=== PATIENT | male | born 1950 | race Two or more races ===

== ENCOUNTER 2016-07-24 12:20 | Inpatient (IN) | payer BC ==
[~2016-07-24] VITALS: Ht 170.2 cm; Wt 99.8 kg
[~2016-07-24 12:20] MED LIST: ATORVASTATIN CA20 MG ORAL; GEMFIBROZIL600 MG ORAL; GLUCOPHAGE850 MG ORAL; NAPROXEN500 M2 ORAL; NEURONTIN300 MG ORAL; TAMSULOSIN HCL0.4 MG ORAL
[2016-07-24 12:43] VITALS: BP 109/48
[2016-07-24] MEDS ORDERED: Nitroglycerin Subl 0.4mg tab (Bottle Of 25) SL PRN ×2 (12:45→21:45)
[2016-07-24 12:59] LABS: BASOPHILS % (AUTO) 0.9 % (0.0-2.0); EOSINOPHILS % (AUTO) 1.8 % (0.0-3.0); LYMPHOCYTES % (AUTO) 39.7 % (20.0-45.0); MEAN CORPUSCULAR HEMOGLOBIN 30.6 PG (27.0-31.0); MEAN CORPUSCULAR HGB CONC 34.5 G/DL (32.0-36.0); MEAN CORPUSCULAR VOLUME 89 FL (80-99); MEAN PLATELET VOLUME 8.7 FL (6.5-10.1); MONOCYTES % (AUTO) 6.6 % (1.0-10.0); NEUTROPHILS % (AUTO) 51.1 % (45.0-75.0); PLATELET COUNT 282 K/UL (150-450); RED BLOOD COUNT 2.82 M/UL (4.70-6.10); RED CELL DISTRIBUTION WIDTH 12.1 % (11.6-14.8); WHITE BLOOD COUNT 8.2 K/UL (4.8-10.8)
[2016-07-24] MEDS ORDERED: Morphine Sulfate 4mg/ml Inj IVP ONE (13:00)
[2016-07-24 13:07] LABS: ALANINE AMINOTRANSFERASE 25 U/L (3-41); ALBUMIN/GLOBULIN RATIO 1.5 (1.0-2.7); ANION GAP 17 (5-15); ASPARTATE AMINO TRANSFERASE 26 U/L (5-40); CALCIUM 8.9 mg/dL (8.6-10.2); CARBON DIOXIDE 23 mEQ/L (20-30); CHLORIDE 96 mEQ/L (98-107); CREATININE 0.6 mg/dL (0.7-1.2); GLOMERULAR FILTRATION RATE > 60 mL/min (>60); HEMOLYSIS 2; POTASSIUM 4.1 mEQ/L (3.4-4.9); SODIUM 136 mEQ/L (135-145); TOTAL PROTEIN 6.7 g/dL (6.6-8.7); TROPONIN I < 0.30 ng/mL (<=0.30)
[2016-07-24 13:18] LABS: CKMB 5.7 ng/mL (< 6.7)
--- NOTE | 2016-07-24 13:52 | Emergency Room Report ---
History of Present Illness General Chief Complaint: Chest Pain Source: Patient Present Illness HPI 66-year-old male presents ED complaining of chest pain. States chest pain started last night. Pain is pressure-like, left-sided, nonradiating, intermittent. Lasting for several seconds then resolving. No other aggravating or relieving factors. Denies fevers or chills. Denies shortness of breath. History of diabetes. No other aggravating relieving factors. Denies any other associated symptoms Allergies: Coded Allergies: PINEAPPLE (Verified Allergy, Unknown, 07/24/16) Patient History Past Medical History: DM Past Surgical History: none Pertinent Family History: none Social History: Denies: alcohol use, drug use, smoking Immunizations: UTD Reviewed Nursing Documentation: PMH: Agreed, PSxH: Agreed Nursing Documentation-PMH Hx Cardiac Problems: No Hx Diabetes: Yes Hx Cancer: No Hx Gastrointestinal Problems: No Hx Neurological Problems: No Review of Systems All Other Systems: negative except mentioned in HPI Physical Exam Vital Signs Date Time Temp Pulse Resp B/P Pulse Ox O2 Delivery O2 Flow Rate FiO2 07/24/16 12:26 97.7 85 20 136/52 100 Room Air Sp02 EP Interpretation: reviewed, normal General Appearance: no apparent distress, alert, GCS 15, non-toxic Head: normocephalic, atraumatic Eyes: bilateral eye PERRL, bilateral eye normal inspection ENT: hearing grossly normal, normal pharynx, no angioedema, normal voice Neck: full range of motion, supple/symm/no masses Respiratory: chest non-tender, lungs clear, normal breath sounds, speaking full sentences Cardiovascular #1: regular rate, rhythm, no edema Cardiovascular #2: 2+ carotid (R), 2+ carotid (L), 2+ radial (R), 2+ radial (L) , 2+ dorsalis pedis (R), 2+ dorsalis pedis (L) Gastrointestinal: normal bowel sounds, non tender, soft, non-distended, no guarding, no rebound Rectal: deferred Genitourinary: normal inspection, no CVA tenderness Musculoskeletal: back normal, gait/station normal, normal range of motion, non- tender Neurologic: alert, oriented x3, responsive, motor strength/tone normal, sensory intact, speech normal Psychiatric: judgement/insight normal, memory normal, mood/affect normal, no suicidal/homicidal ideation Reflexes: 3+ bicep (R), 3+ bicep (L), 3+ tricep (R), 3+ tricep (L), 3+ knee (R) , 3+ knee (L) Skin: normal color, no rash, warm/dry, well hydrated Lymphatic: no adenopathy Medical Decision Making Diagnostic Impression: Primary Impression: ACS (acute coronary syndrome) ER Course Hospital Course 66-year-old male presents ED complaining of left-sided chest pain Differential diagnoses include: TX/unstable angina, contusion, muscle strain, PTX, rib fracture Clinical course Patient placed on stretcher. on monitoring manager. After initial history and physical I ordered labs, EKG, chest x-ray, ASA, morphine labs reviewed- no leukocytosis, hb/hct stable, electrolytes ok, trop negative EKG - NSR no acute ischemic changes Chest x-ray- no acute process Case discussed with Dr. Dykes and he agreed to accept the patient to his service for further care and support I. I feel this is a highly complex case requiring extensive working including EKG/Rhythm strip, Xray/CT/US, Blood/urine lab work, repeat exams while in ED, and administration of strong opiates/narcotics for pain control, admission to hospital or close patient follow up. Diagnosis - ACS admitted to telemetry in serious condition Labs Test 07/24/16 12:35 White Blood Count 8.2 K/UL (4.8-10.8) Red Blood Count 2.82 M/UL (4.70-6.10) Hemoglobin 8.6 G/DL (14.2-18.0) Hematocrit 25.1 % (42.0-52.0) Mean Corpuscular Volume 89 FL (80-99) Mean Corpuscular Hemoglobin 30.6 PG (27.0-31.0) Mean Corpuscular Hemoglobin Concent 34.5 G/DL (32.0-36.0) Red Cell Distribution Width 12.1 % (11.6-14.8) Platelet Count 282 K/UL (150-450) Mean Platelet Volume 8.7 FL (6.5-10.1) Neutrophils (%) (Auto) 51.1 % (45.0-75.0) Lymphocytes (%) (Auto) 39.7 % (20.0-45.0) Monocytes (%) (Auto) 6.6 % (1.0-10.0) Eosinophils (%) (Auto) 1.8 % (0.0-3.0) Basophils (%) (Auto) 0.9 % (0.0-2.0) Sodium Level 136 mEQ/L (135-145) Potassium Level 4.1 mEQ/L (3.4-4.9) Chloride Level 96 mEQ/L (98-107) Carbon Dioxide Level 23 mEQ/L (20-30) Anion Gap 17 (5-15) Blood Urea Nitrogen 15 mg/dL (7-23) Creatinine 0.6 mg/dL (0.7-1.2) Estimat Glomerular Filtration Rate > 60 mL/min (>60) Glucose Level 101 mg/dL (74-106) Calcium Level 8.9 mg/dL (8.6-10.2) Total Bilirubin < 0.2 mg/dL (0.0-1.2) Aspartate Amino Transf (AST/SGOT) 26 U/L (5-40) Alanine Aminotransferase (ALT/SGPT) 25 U/L (3-41) Alkaline Phosphatase 36 U/L (40-129) Total Creatine Kinase 203 U/L (38-174) Creatine Kinase MB 5.7 ng/mL (< 6.7) Creatine Kinase MB Relative Index 2.8 Troponin I < 0.30 ng/mL (<=0.30) Pro-B-Type Natriuretic Peptide 36 pg/mL (0-125) Total Protein 6.7 g/dL (6.6-8.7) Albumin 4.1 g/dL (3.5-5.2) Globulin 2.6 g/dL Albumin/Globulin Ratio 1.5 (1.0-2.7) EKG Diagnostic Results Rate: normal Rhythm: NSR ST Segments: no acute changes ASA given to the pt in ED: No Rhythm Strip Diag. Results EP Interpretation: yes Rhythm: NSR, no PVC's, no ectopy Chest X-Ray Diagnostic Results EP Interpretation: Yes Findings: no consolidation, no effusion, no pneumothorax, no acute cardiopulmonary disease, other - pulmonary congestion Number of Views: 1 Last Vital Signs Date Time Temp Pulse Resp B/P Pulse Ox O2 Delivery O2 Flow Rate FiO2 07/24/16 12:43 98.4 80 22 109/48 94 Room Air Status: improved Disposition: ADMITTED INPATIENT Condition: Serious Referrals: NOT CHOSEN IPA/,REFERRING (PCP) OLGA GUSMAN M.D. Jul 24, 2016 13:52
[2016-07-24 14:50] VITALS: BP 110/50
[2016-07-24 17:00] VITALS: BP 126/56
[2016-07-24 18:00] VITALS: BP 121/61
--- NOTE | 2016-07-24 18:28 | Diagnostic Imaging Report ---
Indication: Chest pain Technique: One view of the chest Comparison: none Findings: Inspiration is suboptimal. There is generalized mild interstitial prominence and central bronchial wall thickening. Pleural spaces are clear. Impression: Mild diffuse interstitial disease, acuity indeterminate. Correlate with clinical findings
[2016-07-24] MEDS ORDERED: Miralax 17gm pkt ORAL PRN (21:45)
[2016-07-24] MEDS ORDERED: Diltiazem 25mg/5ml IV PRN (21:45)
[2016-07-24] MEDS ORDERED: Morphine Sulfate 2mg/ml Inj IVP PRN (21:45)
[2016-07-24] MEDS ORDERED: Ketorolac 30mg Inj IV PRN (21:45)
[2016-07-24] MEDS ORDERED: DuoNeb 0.5-3(2.5)mg/3ml neb HHN PRN (21:45)
[2016-07-24] MEDS ORDERED: Enalaprilat 2.5mg/2ml Inj IV PRN (21:45)
[2016-07-24] MEDS: Heparin 5000 units/ml inj SUBQ SCH (22:37)
[2016-07-24] MEDS ORDERED: LOSARTAN POTASS25 M1 PO (22:56)
[2016-07-24] MEDS ORDERED: GLIPIZIDE10 MG PO (22:56)
[2016-07-25 00:30] VITALS: BP 147/68
[2016-07-25 04:00] VITALS: BP 140/72
[2016-07-25] MEDS: Heparin 5000 units/ml inj SUBQ SCH ×3 (06:00→19:54)
[2016-07-25] MEDS: NovoLOG Insulin Flexpen SUBQ SCH ×4 (07:10→20:09)
[2016-07-25 08:11] VITALS: BP 135/58
[2016-07-25 08:19] LABS: EOSINOPHILS % (AUTO) 1.9 % (0.0-3.0); LYMPHOCYTES % (AUTO) 43.2 % (20.0-45.0); MEAN CORPUSCULAR HEMOGLOBIN 30.1 PG (27.0-31.0); MEAN CORPUSCULAR HGB CONC 33.8 G/DL (32.0-36.0); MEAN CORPUSCULAR VOLUME 89 FL (80-99); MEAN PLATELET VOLUME 8.2 FL (6.5-10.1); MONOCYTES % (AUTO) 5.6 % (1.0-10.0); NEUTROPHILS % (AUTO) 48.2 % (45.0-75.0); PLATELET COUNT 257 K/UL (150-450); RED CELL DISTRIBUTION WIDTH 12.1 % (11.6-14.8); WHITE BLOOD COUNT 6.1 K/UL (4.8-10.8)
[2016-07-25 08:31] LABS: PROTHROMBIN TIME 9.8 SEC (9.30-11.50)
[2016-07-25 08:46] LABS: TROPONIN I < 0.30 ng/mL (<=0.30)
[2016-07-25 08:57] LABS: CHOLESTEROL 132 mg/dL (< 200); CHOLESTEROL/HDL RATIO 4.3 (3.3-4.4); CRP QUANT < 0.3 mg/dL (< 0.5); HEMOLYSIS 2; LDL CHOLESTEROL (CALC.) 67 mg/dL (60-99)
[2016-07-25] MEDS: Aspirin Baby 81mg ORAL SCH (09:00)
--- NOTE | 2016-07-25 09:24 | Cardiology Progress Note ---
Assessment/Plan Assessment/Plan abd and ches discomfort black hard stool anemia obesity dm htn no myonecrosis desptie 48 hour of pain likely gi in origin ekg neg trop neg will have echo he need gi valiente stool ob hol asa for now that trop neg dc naprosyn proton pump inhibitor Objective Last 24 Hour Vital Signs Date Time Temp Pulse Resp B/P Pulse Ox O2 Delivery O2 Flow Rate FiO2 07/25/16 08:11 97.5 70 20 135/58 100 Room Air 07/25/16 05:02 69 07/25/16 04:00 98.0 59 20 140/72 95 Room Air 07/25/16 00:30 97.9 65 20 147/68 94 Room Air 07/24/16 23:22 72 18 Room Air 21 07/24/16 20:00 63 07/24/16 18:45 98.0 69 17 121/61 99 Room Air 07/24/16 18:00 69 17 121/61 99 Room Air 07/24/16 17:00 98.0 68 18 126/56 97 Room Air 07/24/16 14:50 98.0 69 15 110/50 99 Room Air 07/24/16 12:43 98.4 80 22 109/48 94 Room Air 07/24/16 12:41 79 20 Room Air 07/24/16 12:26 97.7 85 20 136/52 100 Room Air Intake and Output 07/24/16 07/25/16 19:00 07:00 Intake Total 0 ml 200 ml Balance 0 ml 200 ml Intake Oral 0 ml 200 ml # Voids 2 Laboratory Tests Test 07/24/16 12:35 07/25/16 06:33 White Blood Count 8.2 K/UL (4.8-10.8) 6.1 K/UL (4.8-10.8) Red Blood Count 2.82 M/UL (4.70-6.10) L 2.90 M/UL (4.70-6.10) L Hemoglobin 8.6 G/DL (14.2-18.0) L 8.7 G/DL (14.2-18.0) L Hematocrit 25.1 % (42.0-52.0) L 25.8 % (42.0-52.0) L Mean Corpuscular Volume 89 FL (80-99) 89 FL (80-99) Mean Corpuscular Hemoglobin 30.6 PG (27.0-31.0) 30.1 PG (27.0-31.0) Mean Corpuscular Hemoglobin Concent 34.5 G/DL (32.0-36.0) 33.8 G/DL (32.0-36.0) Red Cell Distribution Width 12.1 % (11.6-14.8) 12.1 % (11.6-14.8) Platelet Count 282 K/UL (150-450) 257 K/UL (150-450) Mean Platelet Volume 8.7 FL (6.5-10.1) 8.2 FL (6.5-10.1) Neutrophils (%) (Auto) 51.1 % (45.0-75.0) 48.2 % (45.0-75.0) Lymphocytes (%) (Auto) 39.7 % (20.0-45.0) 43.2 % (20.0-45.0) Monocytes (%) (Auto) 6.6 % (1.0-10.0) 5.6 % (1.0-10.0) Eosinophils (%) (Auto) 1.8 % (0.0-3.0) 1.9 % (0.0-3.0) Basophils (%) (Auto) 0.9 % (0.0-2.0) 1.0 % (0.0-2.0) Sodium Level 136 mEQ/L (135-145) Potassium Level 4.1 mEQ/L (3.4-4.9) Chloride Level 96 mEQ/L (98-107) L Carbon Dioxide Level 23 mEQ/L (20-30) Anion Gap 17 (5-15) H Blood Urea Nitrogen 15 mg/dL (7-23) Creatinine 0.6 mg/dL (0.7-1.2) L Estimat Glomerular Filtration Rate > 60 mL/min (>60) Glucose Level 101 mg/dL (74-106) Calcium Level 8.9 mg/dL (8.6-10.2) Total Bilirubin < 0.2 mg/dL (0.0-1.2) Aspartate Amino Transf (AST/SGOT) 26 U/L (5-40) Alanine Aminotransferase (ALT/SGPT) 25 U/L (3-41) Alkaline Phosphatase 36 U/L (40-129) L Total Creatine Kinase 203 U/L (38-174) H Creatine Kinase MB 5.7 ng/mL (< 6.7) Creatine Kinase MB Relative Index 2.8 Troponin I < 0.30 ng/mL (<=0.30) < 0.30 ng/mL (<=0.30) Pro-B-Type Natriuretic Peptide 36 pg/mL (0-125) Total Protein 6.7 g/dL (6.6-8.7) Albumin 4.1 g/dL (3.5-5.2) Globulin 2.6 g/dL Albumin/Globulin Ratio 1.5 (1.0-2.7) Prothrombin Time 9.8 SEC (9.30-11.50) Prothromb Time International Ratio 1.0 (0.9-1.1) Activated Partial Thromboplast Time 22 SEC (23-33) L C-Reactive Protein, Quantitative < 0.3 mg/dL (< 0.5) Triglycerides Level 168 mg/dL (< 150) H Cholesterol Level 132 mg/dL (< 200) LDL Cholesterol 67 mg/dL (60-99) HDL Cholesterol 31 mg/dL (> 60) Cholesterol/HDL Ratio 4.3 (3.3-4.4) Thyroid Stimulating Hormone (TSH) 3.630 uIU/mL (0.300-4.500) BRITTNEY YANG 7, 2017 09:24
[2016-07-25 11:47] VITALS: BP 134/67
--- NOTE | 2016-07-25 14:08 | Cardiology Report ---
APPROVED REPORT EXAM: Two-dimensional and M-mode echocardiogram with Doppler and color Doppler. INDICATION LV function M-Mode DIMENSIONS IVSd1.6 (0.7-1.1cm)Left Atrium (MM)4.6 (1.6-4.0cm) LVDd5.2 (3.5-5.6cm)Aortic Root3.2 (2.0-3.7cm) PWd1.7 (0.7-1.1cm)Aortic Cusp Exc.1.9 (1.5-2.0cm) LVDs3.2 (2.5-4.0cm) PWs2.4 cm Normal left ventricular chamber size, systolic function and wall motion. Left ventricular ejection fraction estimated to be 65 %. Moderate left ventricular hypertrophy. No evidence of pericardial effusion. Mild left atrial enlargement. Right cardiac chamber sizes are within normal limits. Mild focal aortic valve sclerosis with adequate cusp excursion. Mildly thickened mitral valve leaflets with normal excursion. Mild mitral annulus and aortic root calcification. Pulmonic valve not well visualized. Normal tricuspid valve structure. IVC not obtained. A color flow and spectral Doppler study was performed and revealed: Mild mitral regurgitation. Mitral diastolic velocities suggest reduced left ventricular relaxation c/w mild LV diastolic dysfunction (Grade I ). Trace to mild tricuspid regurgitation. Tricuspid systolic velocities suggests peak right ventricular systolic pressure of 38 mmHg, consistent with mild pulmonary hypertension.
--- NOTE | 2016-07-25 15:58 | Consultation ---
DATE OF CONSULTATION: 07/25/2016 CARDIOLOGY CONSULTATION REFERRING PHYSICIAN: Misha Dykes M.D. REASON FOR REFERRAL: Short of breath and chest pain. HISTORY OF PRESENT ILLNESS: This is a 66-year-old gentleman who apparently woke up two nights ago, burning sensation throughout his chest and abdominal wall and eventually went to his doctor's office yesterday and was told to come to the emergency room. He presented to the emergency room of [facility] and he has discomfort that he has been experiencing, has been constantly present for the past 48 hours or so, does not really get worse with activity or taking a deep breath or coughing or twisting or turning. He has noticed however when he walks around that he has shortness of breath with minimal amount of activity. There is no PND or orthopnea. He uses one pillow. He has sensations of dizziness when he sits up or stands up and occasional palpitations. PAST MEDICAL HISTORY: Positive for diabetes and high blood pressure. No history of heart attack. No cancer. No stroke. No hepatitis or tuberculosis. No asthma or emphysema. No ulcers. No kidney problems. No liver problems. No thyroid problems. No anemia or prostate problems, HIV or blood clots anywhere nor narrowing of the blood vessels. He has had some hernia repair. ALLERGIES: He has no known drug allergies. SOCIAL HISTORY: He does not smoke, does not drink and does not use drugs. REVIEW OF SYSTEMS: Gastrointestinal: Positive for constipation. He had very hard and black stools. No tarry stools. No bloody stools. No bloody vomiting. Genitourinary: Negative. Pulmonary: Negative. Constitutional: He is feeling somewhat cold. Neurologic: Tingling sensation in his fingertips. PHYSICAL EXAMINATION: GENERAL: The patient to be obese gentleman in no apparent distress. VITAL SIGNS: His blood pressure has been anywhere between 109/48 to 140/72. His heart rate is in the 59-70. His temperature is 97.5 degrees. HEENT: Unremarkable. NECK: Supple. No jugular venous distention. No abdominojugular reflux is noted. LUNGS: Clear to auscultation and percussion. CARDIAC: S1 is normal. S2 is normal. Regular rate and rhythm. No heaves, thrills, gallops, or rubs are noted. ABDOMEN: Soft and obese. Positive bowel sounds. Nontender. EXTREMITIES: There is no clubbing, cyanosis, or edema. NEUROLOGIC: He is awake, alert, responsive, in no apparent respiratory distress. LABORATORY AND DIAGNOSTIC DATA: His white count 6.1 with hemoglobin of 8.7 and platelet count of 257,000. Sodium is 136, potassium 4.1, chloride 96, bicarbonate 23, BUN of 15, creatinine 0.6, and glucose a of 101. His alkaline phosphatase is 36. CK of 203. Two sets of cardiac enzymes are both unremarkable. C-reactive protein less than 0.3. ProBNP is only 36. Triglycerides 168, cholesterol 132, LDL of 67 and HDL of 31. TSH of 3.6. His electrocardiogram showed normal sinus rhythm, normal QRS and axis. No ST or T-wave abnormalities of any significant degree whatsoever. ASSESSMENT AND PLAN: 1. Chest and abdominal pain. 2. Anemia. 3. Black hard stools. 4. Diabetes. 5. High blood pressure. 6. Obesity. Dr. Dykes, this patient was seen in cardiac consultation. The patient has significant dyspnea on exertion, although I suspect that may be related to anemia rather than any coronary syndrome, however, his stool needs to be checked and he needs to be evaluated for possible loss of blood. I will hold his aspirin for the time being because of the suspicious of possible gastrointestinal bleeding in light of his history. He will have an echocardiogram. He will have repeat cardiac enzymes and repeat EKG as well and he will probably need a workup well cardiac-fraire as well at some point in the future, although I suspect his symptoms are mainly related to his anemia and not specifically coronary ischemia. He does have several risk factors for coronary disease. I will follow the patient along with you. His medications do indicate that he is on Naprosyn, which may be the culprit in his gastrointestinal tract symptoms as well. Thuan Mason M.D. DR: ANNA MARIE JOB#: [id number] CC:
[2016-07-25 16:00] VITALS: BP 142/71
[2016-07-25] MEDS ORDERED: Nulytely 4L ORAL ONE (16:00)
[2016-07-25] MEDS ORDERED: Bisacodyl EC 5mg tab ORAL ONE (16:00)
--- NOTE | 2016-07-25 16:44 | GI Initial Consult Note ---
History of Present Illness General Date patient seen: Jul 25, 2016 Time patient seen: 10:00 Reason for Hospitalization: Chest Pain Referring physician: SELENA REID Reason for Consultation: MELENA Present Illness HPI 66-year-old male presents ED complaining of chest pain. States chest pain started last night. Pain is pressure-like, left-sided, nonradiating, intermittent. Lasting for several seconds then resolving. No other aggravating or relieving factors. Denies fevers or chills. Denies shortness of breath. History of diabetes. No other aggravating relieving factors. Denies any other associated symptoms GI CONSULT: HPI as noted above. Pt seen on floor, awake A&Ox4 NAD. Stated for the past 2 days the patient has been having black stools. Denies any recent use of iron or pepto bismo. Pt presents today with anemia and abnormal alkaline phosphatase. OB stool uncollected. Patient states he has no prior history of any endoscopic procedures. Home Meds Reported Medications Glipizide (GLIPIZIDE) 10 Mg Tablet, 10 MG PO BID, TAB 07/24/16 Losartan Potassium (Losartan Potassium) 25 Mg Tablet, 25 MG PO BID, TAB 07/24/16 Tamsulosin Hcl (TAMSULOSIN HCL*) 0.4 Mg Cap.er.24h, 0.4 MG ORAL BEDTIME, CAP 03/08/14 Atorvastatin Calcium* (ATORVASTATIN CALCIUM*) 20 Mg Tablet, 10 MG ORAL BEDTIME, TAB 03/08/14 Gemfibrozil (GEMFIBROZIL*) 600 Mg Tablet, 600 MG ORAL BID, TAB 0 Refills 03/08/14 Metformin Hcl* (GLUCOPHAGE*) 850 Mg Tablet, 1000 MG ORAL TWICE A DAY, TAB 03/08/14 Gabapentin (Neurontin) 300 Mg Cap, 300 MG ORAL BEDTIME, #7 CAP 0 Refills 03/08/14 Naproxen* (NAPROXEN*) 500 Mg Tablet, 500 MG ORAL TWICE A DAY, TAB 03/08/14 Med list reviewed/reconciled: Yes Allergies: Coded Allergies: PINEAPPLE (Verified Allergy, Unknown, 07/24/16) Patient History History Provided By: Patient, Medical Record PMH Narrative Past Medical History: DM Past Surgical History: none Pertinent Family History: none Social History: Denies: alcohol use, drug use, smoking Immunizations: UTD Reviewed Nursing Documentation: PMH: Agreed, PSxH: Agreed Nursing Documentation-PMH Hx Cardiac Problems: No Hx Diabetes: Yes Hx Cancer: No Hx Gastrointestinal Problems: No Hx Neurological Problems: No Social History: Denies: alcohol use, drug use, other, smoking Review of Systems All Other Systems: negative except mentioned in HPI Physical Exam Vital Signs Date Time Temp Pulse Resp B/P Pulse Ox O2 Delivery O2 Flow Rate FiO2 07/24/16 12:26 97.7 85 20 136/52 100 Room Air 07/24/16 23:22 21 Sp02 EP Interpretation: reviewed Labs Laboratory Tests Test 07/25/16 06:33 White Blood Count 6.1 K/UL (4.8-10.8) Red Blood Count 2.90 M/UL (4.70-6.10) L Hemoglobin 8.7 G/DL (14.2-18.0) L Hematocrit 25.8 % (42.0-52.0) L Mean Corpuscular Volume 89 FL (80-99) Mean Corpuscular Hemoglobin 30.1 PG (27.0-31.0) Mean Corpuscular Hemoglobin Concent 33.8 G/DL (32.0-36.0) Red Cell Distribution Width 12.1 % (11.6-14.8) Platelet Count 257 K/UL (150-450) Mean Platelet Volume 8.2 FL (6.5-10.1) Neutrophils (%) (Auto) 48.2 % (45.0-75.0) Lymphocytes (%) (Auto) 43.2 % (20.0-45.0) Monocytes (%) (Auto) 5.6 % (1.0-10.0) Eosinophils (%) (Auto) 1.9 % (0.0-3.0) Basophils (%) (Auto) 1.0 % (0.0-2.0) Prothrombin Time 9.8 SEC (9.30-11.50) Prothromb Time International Ratio 1.0 (0.9-1.1) Activated Partial Thromboplast Time 22 SEC (23-33) L Troponin I < 0.30 ng/mL (<=0.30) C-Reactive Protein, Quantitative < 0.3 mg/dL (< 0.5) Triglycerides Level 168 mg/dL (< 150) H Cholesterol Level 132 mg/dL (< 200) LDL Cholesterol 67 mg/dL (60-99) HDL Cholesterol 31 mg/dL (> 60) Cholesterol/HDL Ratio 4.3 (3.3-4.4) Thyroid Stimulating Hormone (TSH) 3.630 uIU/mL (0.300-4.500) General Appearance: well appearing, no apparent distress, alert, obese Head: normocephalic EENT: normal ENT inspection Neck: supple Respiratory: normal breath sounds, no rhonchi, no respiratory distress Cardiovascular: normal rate Gastrointestinal: normal inspection, non tender, soft Musculoskeletal: normal inspection Neurologic: normal inspection, alert, oriented x3, responsive Psychiatric: normal inspection, judgement/insight normal Skin: normal inspection, normal color, no rash Lymphatic: normal inspection, no adenopathy Current Medications Current Medications Medications (Trade) Dose Ordered Sig/Sherine Route PRN Reason Start Time Stop Time Status Last Admin Dose Admin Acetaminophen (Tylenol) 650 mg Q4H PRN ORAL FEVER 07/24/16 21:45 08/23/16 21:44 Albuterol/ Ipratropium (DuoNeb 0.5-3(2.5)mg/3ml) 3 ml EVERY 4 HOURS PRN HHN Shortness of Breath 07/24/16 21:45 07/29/16 21:44 Aspirin (ASA) 162 mg DAILY ORAL 07/25/16 09:00 08/24/16 08:59 Atorvastatin Calcium (Lipitor) 10 mg BEDTIME ORAL 07/25/16 21:00 08/24/16 20:59 Dextrose (Dextrose 50%) STAT PRN IV Hypoglycemia 07/24/16 21:45 08/23/16 21:44 Diltiazem HCl (Cardizem) 10 mg EVERY HOUR PRN IV heart rate more than 120, 07/24/16 21:45 08/23/16 21:44 Enalaprilat (Vasotec) 2.5 mg EVERY 6 HOURS PRN IV sbp more than 160 07/24/16 21:45 08/23/16 21:44 Gabapentin (Neurontin) 300 mg BEDTIME ORAL 07/25/16 21:00 08/24/16 20:59 Heparin Sodium (Porcine) (Heparin 5000 units/ml) 5,000 units EVERY 8 HOURS SUBQ 07/24/16 22:00 08/23/16 21:59 07/24/16 22:37 Insulin Aspart (NovoLOG) BEFORE MEALS AND HS SUBQ 07/25/16 06:30 08/24/16 06:29 07/25/16 11:51 Morphine Sulfate (Morphine Sulfate) 2 mg EVERY 4 HOURS PRN IVP severe Pain (Pain Scale 7-10) 07/24/16 21:45 07/31/16 21:44 Nitroglycerin (Ntg) 0.4 mg Every 5 Minutes PRN SL Prn Chest Pain 07/24/16 21:45 08/23/16 21:44 Ondansetron HCl (Zofran) 4 mg Q6H PRN IVP Nausea & Vomiting 07/24/16 21:45 08/23/16 21:44 Pantoprazole (Protonix) 40 mg DAILY ORAL 07/25/16 09:00 08/24/16 08:59 07/25/16 09:01 Polyethylene Glycol (Miralax) 17 gm DAILYPRN PRN ORAL Constipation 07/24/16 21:45 08/23/16 21:44 Tamsulosin HCl (Flomax) 0.4 mg BEDTIME ORAL 07/25/16 21:00 08/24/16 20:59 Temazepam (Restoril) 15 mg HSPRN PRN ORAL Insomnia 07/24/16 21:45 07/31/16 21:44 GI: Plan Problems: (1) Anemia (2) GI bleed (3) Alkaline phosphatase elevation (4) Colonoscopy planned Plan EGD/colonoscopy scheduled for tomorrow. - NPO @ ID. ppi fu labs Discussed with Dr. Espinosa. Thank you for referring this patient, we will follow. Elenita Vinson N.P. Jul 25, 2016 16:44
[2016-07-25 20:00] VITALS: BP 160/70
[2016-07-25] MEDS: Tamsulosin 0.4mg cap ORAL SCH (20:05)
--- NOTE | 2016-07-25 22:03 | History and Physical ---
History of Present Illness General Date patient seen: Jul 25, 2016 Reason for Hospitalization: Chest Pain Present Illness HPI 66-year-old male with hx of DM, HTN presented to [facility] ED complaining of chest painm started last night. Pain is pressure-like, left-sided, nonradiating , intermittent. Lasting for several seconds then resolving. No other aggravating or relieving factors. Denies fevers or chills. Denies shortness of breath. He also complains of dark stools in the last few days. Without any other GI symptoms. Allergies: Coded Allergies: PINEAPPLE (Verified Allergy, Unknown, 07/24/16) Medication History Scheduled Atorvastatin Calcium* (Atorvastatin Calcium*), 10 MG ORAL BEDTIME, (Reported) Gabapentin (Neurontin), 300 MG ORAL BEDTIME, (Reported) Gemfibrozil (Gemfibrozil*), 600 MG ORAL BID, (Reported) Glipizide (Glipizide), 10 MG PO BID, (Reported) Losartan Potassium (Losartan Potassium), 25 MG PO BID, (Reported) Metformin Hcl* (Glucophage*), 1,000 MG ORAL TWICE A DAY, (Reported) Naproxen* (Naproxen*), 500 MG ORAL TWICE A DAY, (Reported) Tamsulosin Hcl (Tamsulosin Hcl*), 0.4 MG ORAL BEDTIME, (Reported) Patient History Healthcare decision maker pt alert and oriented Resuscitation status Full Code Advanced Directive on File Past Medical/Surgical History Past Medical/Surgical History: (1) HTN (hypertension) (2) Diabetes mellitus Review of Systems All Other Systems: negative except mentioned in HPI Physical Exam General Appearance: WD/WN HEENT: normocephalic, atraumatic Neck: non-tender, normal alignment Respiratory/Chest: chest wall non-tender Breasts: no masses Last 24 Hour Vital Signs Date Time Temp Pulse Resp B/P Pulse Ox O2 Delivery O2 Flow Rate FiO2 07/25/16 20:41 77 18 Room Air 07/25/16 20:00 97.9 74 22 160/70 98 Room Air 07/25/16 16:00 62 07/25/16 16:00 96.4 64 22 142/71 97 Room Air 07/25/16 12:00 62 07/25/16 11:47 97.5 65 20 134/67 100 Room Air 07/25/16 10:22 80 18 Room Air 21 07/25/16 08:11 97.5 70 20 135/58 100 Room Air 07/25/16 08:00 70 07/25/16 05:02 69 07/25/16 04:00 98.0 59 20 140/72 95 Room Air 07/25/16 00:30 97.9 65 20 147/68 94 Room Air 07/24/16 23:22 72 18 Room Air 21 Intake and Output 07/24/16 07/25/16 19:00 07:00 Intake Total 0 ml 200 ml Balance 0 ml 200 ml Intake Oral 0 ml 200 ml # Voids 2 Laboratory Tests Test 07/25/16 06:33 07/25/16 15:20 White Blood Count 6.1 K/UL (4.8-10.8) Red Blood Count 2.90 M/UL (4.70-6.10) L Hemoglobin 8.7 G/DL (14.2-18.0) L Hematocrit 25.8 % (42.0-52.0) L Mean Corpuscular Volume 89 FL (80-99) Mean Corpuscular Hemoglobin 30.1 PG (27.0-31.0) Mean Corpuscular Hemoglobin Concent 33.8 G/DL (32.0-36.0) Red Cell Distribution Width 12.1 % (11.6-14.8) Platelet Count 257 K/UL (150-450) Mean Platelet Volume 8.2 FL (6.5-10.1) Neutrophils (%) (Auto) 48.2 % (45.0-75.0) Lymphocytes (%) (Auto) 43.2 % (20.0-45.0) Monocytes (%) (Auto) 5.6 % (1.0-10.0) Eosinophils (%) (Auto) 1.9 % (0.0-3.0) Basophils (%) (Auto) 1.0 % (0.0-2.0) Prothrombin Time 9.8 SEC (9.30-11.50) Prothromb Time International Ratio 1.0 (0.9-1.1) Activated Partial Thromboplast Time 22 SEC (23-33) L Troponin I < 0.30 ng/mL (<=0.30) C-Reactive Protein, Quantitative < 0.3 mg/dL (< 0.5) Triglycerides Level 168 mg/dL (< 150) H Cholesterol Level 132 mg/dL (< 200) LDL Cholesterol 67 mg/dL (60-99) HDL Cholesterol 31 mg/dL (> 60) Cholesterol/HDL Ratio 4.3 (3.3-4.4) Thyroid Stimulating Hormone (TSH) 3.630 uIU/mL (0.300-4.500) Stool Occult Blood Pending Height (Feet): 5 Height (Inches): 7.00 Weight (Pounds): 220 Medications Current Medications Medications (Trade) Dose Ordered Sig/Sherine Route PRN Reason Start Time Stop Time Status Last Admin Dose Admin Acetaminophen (Tylenol) 650 mg Q4H PRN ORAL FEVER 07/24/16 21:45 08/23/16 21:44 Albuterol/ Ipratropium (DuoNeb 0.5-3(2.5)mg/3ml) 3 ml EVERY 4 HOURS PRN HHN Shortness of Breath 07/24/16 21:45 07/29/16 21:44 Aspirin (ASA) 162 mg DAILY ORAL 07/25/16 09:00 08/24/16 08:59 Atorvastatin Calcium (Lipitor) 10 mg BEDTIME ORAL 07/25/16 21:00 08/24/16 20:59 07/25/16 20:05 Dextrose (Dextrose 50%) STAT PRN IV Hypoglycemia 07/24/16 21:45 08/23/16 21:44 Diltiazem HCl (Cardizem) 10 mg EVERY HOUR PRN IV heart rate more than 120, 07/24/16 21:45 08/23/16 21:44 Enalaprilat (Vasotec) 2.5 mg EVERY 6 HOURS PRN IV sbp more than 160 07/24/16 21:45 08/23/16 21:44 Gabapentin (Neurontin) 300 mg BEDTIME ORAL 07/25/16 21:00 08/24/16 20:59 07/25/16 20:05 Heparin Sodium (Porcine) (Heparin 5000 units/ml) 5,000 units EVERY 8 HOURS SUBQ 07/24/16 22:00 08/23/16 21:59 07/24/16 22:37 Insulin Aspart (NovoLOG) BEFORE MEALS AND HS SUBQ 07/25/16 06:30 08/24/16 06:29 07/25/16 20:09 Morphine Sulfate (Morphine Sulfate) 2 mg EVERY 4 HOURS PRN IVP severe Pain (Pain Scale 7-10) 07/24/16 21:45 07/31/16 21:44 Nitroglycerin (Ntg) 0.4 mg Every 5 Minutes PRN SL Prn Chest Pain 07/24/16 21:45 08/23/16 21:44 Ondansetron HCl (Zofran) 4 mg Q6H PRN IVP Nausea & Vomiting 07/24/16 21:45 08/23/16 21:44 Pantoprazole (Protonix) 40 mg DAILY ORAL 07/25/16 09:00 08/24/16 08:59 07/25/16 09:01 Polyethylene Glycol (Miralax) 17 gm DAILYPRN PRN ORAL Constipation 07/24/16 21:45 08/23/16 21:44 Tamsulosin HCl (Flomax) 0.4 mg BEDTIME ORAL 07/25/16 21:00 08/24/16 20:59 07/25/16 20:05 Temazepam (Restoril) 15 mg HSPRN PRN ORAL Insomnia 07/24/16 21:45 07/31/16 21:44 Assessment/Plan Problem List: (1) ACS (acute coronary syndrome) ICD Codes: I24.9 - Acute ischemic heart disease, unspecified SNOMED: 944468822 (2) Anemia ICD Codes: D64.9 - Anemia, unspecified SNOMED: 267603097 (3) Diabetes mellitus ICD Codes: E11.9 - Type 2 diabetes mellitus without complications SNOMED: 74734334 (4) HTN (hypertension) ICD Codes: I10 - Essential (primary) hypertension SNOMED: 41468677 Assessment/Plan serial ekg, troponin, cardiology evaluation GI evaluation prbc prn anemia work/up SELENA WOLFE Jul 25, 2016 22:03
[2016-07-26] VITALS (12 sets, daily range): BP systolic 106–153; BP diastolic 49–87
[2016-07-26] MEDS: Heparin 5000 units/ml inj SUBQ SCH ×3 (06:00→22:12)
[2016-07-26] MEDS: NovoLOG Insulin Flexpen SUBQ SCH ×4 (06:30→22:34)
[2016-07-26 08:22] LABS: TROPONIN I < 0.30 ng/mL (<=0.30)
[2016-07-26 08:37] LABS: ALANINE AMINOTRANSFERASE 33 U/L (3-41); ALBUMIN/GLOBULIN RATIO 1.6 (1.0-2.7); ANION GAP 15 (5-15); ASPARTATE AMINO TRANSFERASE 29 U/L (5-40); CALCIUM 8.6 mg/dL (8.6-10.2); CARBON DIOXIDE 25 mEQ/L (20-30); CHLORIDE 100 mEQ/L (98-107); CREATININE 0.6 mg/dL (0.7-1.2); GLOMERULAR FILTRATION RATE > 60 mL/min (>60); HEMOLYSIS 10; POTASSIUM 4.2 mEQ/L (3.4-4.9); SODIUM 140 mEQ/L (135-145); TOTAL PROTEIN 6.5 g/dL (6.6-8.7)
[2016-07-26] MEDS ORDERED: Midazolam 2mg/2ml Inj ONE (08:45)
[2016-07-26] MEDS ORDERED: fentaNYL 100 mcg/2 mL IV ONE (08:45)
[2016-07-26] MEDS ORDERED: Propofol 10mg/ml 20ml IV ONE (08:45)
[2016-07-26] MEDS ORDERED: LR 1000ml ONE (08:45)
[2016-07-26] MEDS: Aspirin Baby 81mg ORAL SCH (09:00)
[2016-07-26 09:39] LABS: BASOPHILS % (AUTO) 1.2 % (0.0-2.0); EOSINOPHILS % (AUTO) 1.6 % (0.0-3.0); MEAN CORPUSCULAR VOLUME 89 FL (80-99); MONOCYTES % (AUTO) 6.7 % (1.0-10.0); NEUTROPHILS % (AUTO) 54.5 % (45.0-75.0); PLATELET COUNT 287 K/UL (150-450); RED BLOOD COUNT 2.75 M/UL (4.70-6.10); RED CELL DISTRIBUTION WIDTH 12.7 % (11.6-14.8); WHITE BLOOD COUNT 5.5 K/UL (4.8-10.8)
--- NOTE | 2016-07-26 09:39 | Diagnostic Imaging Report ---
APPROVED REPORT CPT Code: 26079 Present Symptoms Comments: Hip pain BILATERAL: Imaging reveals a patent deep venous system bilaterally. There is no evidence of thrombus within the femoral, popliteal or tibial segments. The greater saphenous veins are also within normal limits. Doppler indicates normal spontaneous flow within these segments.
--- NOTE | 2016-07-26 09:46 | Pre-Procedure Note/Attestation ---
Pre-Procedure Note/Attestation Complete Prior to Procedure Planned Procedure: not applicable Procedure Narrative: egd/colonoscopy Indications for Procedure Pre-Operative Diagnosis: anemia Attestation I attest that I discussed the nature of the procedure; its benefits; risks and complications; and alternatives (and the risks and benefits of such alternatives ), prior to the procedure, with the patient (or the patient's legal medical billing representative). I attest that, if there was a reasonable possibility of needing a blood transfusion, the patient (or the patient's legal medical billing representative) was given the [facility] standardized written summary, pursuant to the Hola Ramin Blood Safety Act ([place] Health and Safety Code # 1645, as amended). I attest that I re-evaluated the patient just prior to the surgery and that there has been no change in the patient's H&P, except as documented below: KING PERALES Jul 26, 2016 09:45
[2016-07-26] MEDS ORDERED: NS 550ML IV ONE (09:48)
[2016-07-26 09:57] LABS: PROTHROMBIN TIME 10.1 SEC (9.30-11.50)
--- NOTE | 2016-07-26 10:09 | Anethesia Preoperative Eval ---
Anesthesia Pre-op PMH/ROS General Date of Evaluation: Jul 26, 2016 Time of Evaluation: 09:42 Anesthesiologist: Kraig ASA Score: ASA 3 Mallampati Score Class I : Soft palate, uvula, fauces, pillars visible Class II: Soft palate, uvula, fauces visible Class III: Soft palate, base of uvula visible Class IV: Only hard plate visible Mallampati Classification: Class III Surgeon: Jesús Diagnosis: Anemia Surgical Procedure: GD Colonoscopy Anesthesia History: none Social History: smoking - h/o Family History: no anesthesia problems Allergies: Coded Allergies: PINEAPPLE (Verified Allergy, Unknown, 07/24/16) Past Medical History Cardiovascular: Reports: HTN, Denies: CAD, TN, arrhythmia, other, valve dz Pulmonary: Reports: TINO, Denies: COPD, asthma, other Gastrointestinal/Genitourinary: Reports: GERD, Denies: CRI, ESRD, other Neurologic/Psychiatric: Denies: CVA, TIA, dementia, depression/anxiety, other Endocrine: Reports: DM, Denies: hypothyroidism, other, steroids HEENT: Denies: [place] (L), [place]VI (R), cataract (L), cataract (R), glaucoma, other Hematology/Immune: Reports: anemia, Denies: DVT, bleeding disorder, other Musculoskeletal/Integumentary: Denies: DDD, DJD, OA, RA, edema, other Other: obesity PMH Narrative: as above PSxH Narrative: see chart Anesthesia Pre-op Phys. Exam Physician Exam Last Vital Signs Date Time Temp Pulse Resp B/P Pulse Ox O2 Delivery O2 Flow Rate FiO2 07/26/16 07:57 97.7 60 20 106/49 96 Room Air 07/25/16 10:22 21 Constitutional: NAD Neurologic: CN 2-12 intact Cardiovascular: RRR, no M/R/G Respiratory: CTA Gastrointestinal: other - obesity Airway Exam Mallampati Score: Class III MO: limited Neck: Short ROM: limited Teeth: missing Dentures: no lower, no upper Anesthesia Pre-op A/P Labs Hematology Test 07/26/16 08:50 White Blood Count 5.5 K/UL (4.8-10.8) Red Blood Count 2.75 M/UL (4.70-6.10) L Hemoglobin 8.5 G/DL (14.2-18.0) L Hematocrit 24.4 % (42.0-52.0) L Mean Corpuscular Volume 89 FL (80-99) Mean Corpuscular Hemoglobin 31.0 PG (27.0-31.0) Mean Corpuscular Hemoglobin Concent 35.0 G/DL (32.0-36.0) Red Cell Distribution Width 12.7 % (11.6-14.8) Platelet Count 287 K/UL (150-450) Mean Platelet Volume 8.0 FL (6.5-10.1) Neutrophils (%) (Auto) 54.5 % (45.0-75.0) Lymphocytes (%) (Auto) 36.0 % (20.0-45.0) Monocytes (%) (Auto) 6.7 % (1.0-10.0) Eosinophils (%) (Auto) 1.6 % (0.0-3.0) Basophils (%) (Auto) 1.2 % (0.0-2.0) Coagulation Test 07/26/16 08:50 Prothrombin Time 10.1 SEC (9.30-11.50) Prothromb Time International Ratio 1.0 (0.9-1.1) Activated Partial Thromboplast Time 22 SEC (23-33) L Chemistry Test 07/26/16 06:45 Sodium Level 140 mEQ/L (135-145) Potassium Level 4.2 mEQ/L (3.4-4.9) Chloride Level 100 mEQ/L (98-107) Carbon Dioxide Level 25 mEQ/L (20-30) Anion Gap 15 (5-15) Blood Urea Nitrogen 11 mg/dL (7-23) Creatinine 0.6 mg/dL (0.7-1.2) L Estimat Glomerular Filtration Rate > 60 mL/min (>60) Glucose Level 129 mg/dL (74-106) H Calcium Level 8.6 mg/dL (8.6-10.2) Total Bilirubin < 0.2 mg/dL (0.0-1.2) Aspartate Amino Transf (AST/SGOT) 29 U/L (5-40) Alanine Aminotransferase (ALT/SGPT) 33 U/L (3-41) Alkaline Phosphatase 38 U/L (40-129) L Troponin I < 0.30 ng/mL (<=0.30) Total Protein 6.5 g/dL (6.6-8.7) L Albumin 4.0 g/dL (3.5-5.2) Globulin 2.5 g/dL Albumin/Globulin Ratio 1.6 (1.0-2.7) Studies Pre-op Studies: EKG - NR Risk Assessment & Plan Assessment: ASA 3 Plan: MAC Status Change Before Surgery: No Pre-Antibiotics Drug: none EUGENE GILMORE M.D. Jul 26, 2016 10:08
[2016-07-26] MEDS ORDERED: DiphenhydrAMINE 50mg/ml Inj IVP PRN (10:15)
[2016-07-26] MEDS ORDERED: Meperidine 25mg/ml Inj IV PRN (10:15)
--- NOTE | 2016-07-26 10:17 | Endoscopy Procedure Note ---
Endoscopy Procedure Note Indication for Procedure: anemia Procedures Performed: EGD, colonoscopy Operative Findings/Diagnosis: gastritis, diverticulosis, 3 colon polyps Specimen: yes Pt Tolerated Procedure Well: Yes Estimated Blood Loss: none Anesthesiologist: luis Anesthesia: MAC Implant(s) used?: No 50 yrs or older w/o bx or poly: Not Applicable 10yrs. F/U not recommended: Not Applicable KING PERALES Jul 26, 2016 10:17
--- NOTE | 2016-07-26 10:25 | Immediate Post-Op Evaluation ---
Immediate Post-Op Evalulation Immediate Post-Op Evalulation Procedure: EGD with Bx Colonoscopy polypectomy Date of Evaluation: Jul 26, 2016 Time of Evaluation: 10:24 IV Fluids: 300 Blood Products: none Estimated Blood Loss: none Urinary Output: none Blood Pressure Systolic: 118 Blood Pressure Diastolic: 56 Pulse Rate: 66 Respiratory Rate: 20 O2 Sat by Pulse Oximetry: 99 Temperature (Fahrenheit): 97.6 Pain Score (1-10): 1 Nausea: No Vomiting: No Complications none Patient Status: reacts, patent, none Hydration Status: adequate EUGENE GILMORE M.D. Jul 26, 2016 10:25
--- NOTE | 2016-07-26 13:04 | 48 Hour Post Anesthesia Eval ---
Post Anesthesia Evaluation Procedure: EGD with Bx Colonoscopy polypectomy Date of Evaluation: Jul 26, 2016 Time of Evaluation: 13:03 Blood Pressure Systolic: 128 0: 56 Pulse Rate: 72 Respiratory Rate: 20 Temperature (Fahrenheit): 97.6 O2 Sat by Pulse Oximetry: 98 Airway: patent Nausea: No Vomiting: No Pain Intensity: 1 Hydration Status: adequate Cardiopulmonary Status: stable Mental Status/LOC: patient returned to baseline Follow-up Care/Observations: n/a Post-Anesthesia Complications: none Follow-up care needed: N/A EUGENE GILMORE M.D. Jul 26, 2016 13:04
--- NOTE | 2016-07-26 15:27 | Pulmonology Progress Note ---
Assessment/Plan Problems: (1) ACS (acute coronary syndrome) (2) Anemia (3) Diabetes mellitus (4) HTN (hypertension) Assessment/Plan prbc prn results of colonoscopy pending cardiac f/u check echo Subjective ROS Limited/Unobtainable: No Interval Events: had colonoscopy, no new complains Allergies: Coded Allergies: PINEAPPLE (Verified Allergy, Unknown, 07/24/16) Objective Last 24 Hour Vital Signs Date Time Temp Pulse Resp B/P Pulse Ox O2 Delivery O2 Flow Rate FiO2 07/26/16 13:04 72 20 98 07/26/16 12:00 61 07/26/16 11:30 97.2 61 14 120/70 97 Room Air 07/26/16 11:15 63 15 119/69 96 Room Air 07/26/16 11:00 97.2 62 16 117/65 97 Room Air 07/26/16 10:45 63 15 118/62 98 Room Air 07/26/16 10:33 64 14 116/58 100 Nasal Cannula 2.0 07/26/16 10:28 60 16 120/61 100 Nasal Cannula 2.0 07/26/16 10:25 66 20 99 07/26/16 10:23 97.0 62 15 118/68 100 Nasal Cannula 2.0 07/26/16 08:20 60 20 Room Air 21 07/26/16 08:00 60 07/26/16 07:57 97.7 60 20 106/49 96 Room Air 07/26/16 04:29 97.9 88 20 141/59 95 Room Air 07/26/16 04:00 62 07/26/16 00:28 98.0 77 20 109/58 98 Room Air 07/26/16 00:00 70 07/25/16 20:41 77 18 Room Air 07/25/16 20:00 84 07/25/16 20:00 97.9 74 22 160/70 98 Room Air 07/25/16 16:00 62 07/25/16 16:00 96.4 64 22 142/71 97 Room Air Intake and Output 07/25/16 07/26/16 19:00 07:00 Intake Total 1000 ml 300 ml Balance 1000 ml 300 ml Intake Oral 1000 ml 300 ml # Voids 2 1 # Bowel Movements 2 Objective General Appearance: WD/WN Lines, tubes and drains: peripheral, central line HEENT: normocephalic, atraumatic Neck: non-tender, normal alignment Respiratory/Chest: chest wall non-tender, lungs clear Cardiovascular/Chest: normal peripheral pulses Genitourinary/Rectal: normal genital exam Extremities: normal range of motion Laboratory Tests 07/26/16 06:45: Sodium Level 140, Potassium Level 4.2, Chloride Level 100, Carbon Dioxide Level 25, Anion Gap 15, Blood Urea Nitrogen 11, Creatinine 0.6L, Estimat Glomerular Filtration Rate > 60, Glucose Level 129H, Calcium Level 8.6, Total Bilirubin < 0.2, Aspartate Amino Transf (AST/SGOT) 29, Alanine Aminotransferase (ALT/SGPT) 33, Alkaline Phosphatase 38L, Troponin I < 0.30, Total Protein 6.5L, Albumin 4.0 , Globulin 2.5, Albumin/Globulin Ratio 1.6 07/26/16 08:50: White Blood Count 5.5, Red Blood Count 2.75L, Hemoglobin 8.5L, Hematocrit 24.4L , Mean Corpuscular Volume 89, Mean Corpuscular Hemoglobin 31.0, Mean Corpuscular Hemoglobin Concent 35.0, Red Cell Distribution Width 12.7, Platelet Count 287, Mean Platelet Volume 8.0, Neutrophils (%) (Auto) 54.5, Lymphocytes (% ) (Auto) 36.0, Monocytes (%) (Auto) 6.7, Eosinophils (%) (Auto) 1.6, Basophils ( %) (Auto) 1.2, Prothrombin Time 10.1, Prothromb Time International Ratio 1.0, Activated Partial Thromboplast Time 22L Current Medications Medications (Trade) Dose Ordered Sig/Sherine Route PRN Reason Start Time Stop Time Status Last Admin Dose Admin Acetaminophen (Tylenol) 650 mg Q4H PRN ORAL FEVER 07/24/16 21:45 08/23/16 21:44 Albuterol/ Ipratropium (DuoNeb 0.5-3(2.5)mg/3ml) 3 ml EVERY 4 HOURS PRN HHN Shortness of Breath 07/24/16 21:45 07/29/16 21:44 Aspirin (ASA) 162 mg DAILY ORAL 07/25/16 09:00 08/24/16 08:59 Atorvastatin Calcium (Lipitor) 10 mg BEDTIME ORAL 07/25/16 21:00 08/24/16 20:59 07/25/16 20:05 Dextrose (Dextrose 50%) STAT PRN IV Hypoglycemia 07/24/16 21:45 08/23/16 21:44 Diltiazem HCl (Cardizem) 10 mg EVERY HOUR PRN IV heart rate more than 120, 07/24/16 21:45 08/23/16 21:44 Diphenhydramine HCl (Benadryl) 25 mg Q15M PRN IVP Itching 07/26/16 10:15 07/26/16 16:00 Enalaprilat (Vasotec) 2.5 mg EVERY 6 HOURS PRN IV sbp more than 160 07/24/16 21:45 08/23/16 21:44 Gabapentin (Neurontin) 300 mg BEDTIME ORAL 07/25/16 21:00 08/24/16 20:59 07/25/16 20:05 Heparin Sodium (Porcine) 5000 units 5,000 units EVERY 8 HOURS SUBQ 07/24/16 22:00 08/23/16 21:59 07/24/16 22:37 Insulin Aspart (NovoLOG) BEFORE MEALS AND HS SUBQ 07/25/16 06:30 08/24/16 06:29 07/25/16 20:09 Meperidine HCl (Demerol) 25 mg Q15M PRN IV Shivering 07/26/16 10:15 07/26/16 16:00 Morphine Sulfate (Morphine Sulfate) 2 mg EVERY 4 HOURS PRN IVP severe Pain (Pain Scale 7-10) 07/24/16 21:45 07/31/16 21:44 Nitroglycerin (Ntg) 0.4 mg Every 5 Minutes PRN SL Prn Chest Pain 07/24/16 21:45 08/23/16 21:44 Ondansetron HCl (Zofran) 4 mg Q1H PRN IVP Nausea & Vomiting 07/26/16 10:15 07/26/16 16:00 Ondansetron HCl (Zofran) 4 mg Q6H PRN IVP Nausea & Vomiting 07/24/16 21:45 08/23/16 21:44 Pantoprazole (Protonix) 40 mg DAILY ORAL 07/25/16 09:00 08/24/16 08:59 07/26/16 09:06 Polyethylene Glycol (Miralax) 17 gm DAILYPRN PRN ORAL Constipation 07/24/16 21:45 08/23/16 21:44 Sodium Chloride (Sodium Chloride 1000ml bag) 1,000 ml @ 10 mls/hr Q24H IVLG 07/26/16 10:04 07/26/16 16:00 Tamsulosin HCl (Flomax) 0.4 mg BEDTIME ORAL 07/25/16 21:00 08/24/16 20:59 07/25/16 20:05 Temazepam (Restoril) 15 mg HSPRN PRN ORAL Insomnia 07/24/16 21:45 07/31/16 21:44 SELENA WOLFE Jul 26, 2016 15:27
--- NOTE | 2016-07-26 15:39 | Diagnostic Imaging Report ---
Indication: Chest and abdominal pain Technique: Continuous helical transaxial imaging of the chest, abdomen and pelvis was obtained from the lung bases to the pubic symphysis during intravenous contrast administration. Multiple phases of enhancement obtained. Coronal 2-D reformats were also obtained. Study obtained in a Siemens sensation [address] Total Dose length Product (DLP): [address] Dose Index Volume (CTDIvol): 8, 89, 24, 22 mGy Comparison: CT abdomen 03/08/14 Findings: CT chest: Lungs are essentially clear. There is an azygos lobe present. Aorta shows no evidence of aneurysm or dissection. Very mild mural calcification noted. The heart is unremarkable. There is a hiatal hernia. Small nodes are seen in the tom nonspecific. Right hemidiaphragm is elevated which was also noted on the previous occasion. CT abdomen pelvis: The liver is prominent and diffusely hypodense. Craniocaudal dimension is about 23 cm. There are nonobstructive stones within both kidneys which are more pronounced than on the prior study. These have developed since that time. There is a focus of scarring in the right kidney. There are a few cysts present within both kidneys. No obvious abnormalities of the pancreas or gallbladder are identified. There is no adrenal mass. There is apparent thickening of the wall of the urinary bladder. The prostate appears mildly prominent. There is a right inguinal hernia containing fat. The appendix is seen and appears normal. There are diverticula in the colon. Impression: No evidence of aortic dissection or aneurysm. Mild atherosclerotic vascular disease noted Hepatomegaly with fatty infiltration. Hiatal hernia Multiple tiny nonobstructive stones within both kidneys. Focal scarring of the right kidney noted Multiple small bilateral renal cysts. Thickening of the urinary bladder wall. Cystitis suspected. These correlate clinically. Finding could be on the basis of prostate hypertrophy and chronic bladder outlet impediment. Normal appendix Right inguinal hernia containing fat The CT scanner at [facility] is accredited by the [employer] and the scans are performed using protocols designed to limit radiation exposure to as low as reasonably achievable to attain images of sufficient resolution adequate for diagnostic evaluation.
--- NOTE | 2016-07-26 16:11 | Cardiology Report ---
APPROVED REPORT EKG Measurement Heart [id number] * Pediatric ECG analysis * Sinus bradycardia Left axis deviation Nonspecific T wave abnormality
--- NOTE | 2016-07-26 19:58 | Procedure Note ---
DATE OF PROCEDURE: 07/26/2016 SURGEON: Clyde Espinosa M.D. ANESTHESIOLOGIST: Fabrizio Cornell M.D. PROCEDURE: Colonoscopy with snare polypectomy and biopsy and endoscopy with biopsy. INSTRUMENT: Olympus adult flexible colonoscope and endoscope. INDICATION: Anemia. REASON FOR PROCEDURE: The procedure, risks, benefits, and possible consequences, including hemorrhage, aspiration, perforation and infection, and alternative treatments, were explained to the patient/legal guardian by Dr. Clyde Espinosa and the patient/legal guardian understood and accepted these risks. DESCRIPTION OF PROCEDURE: After informed consent was obtained and the patient was adequately sedated, Olympus upper endoscope was advanced from mouth into the second portion of the duodenum and retroflexion was performed in the stomach. The patient has diffuse gastritis. Random biopsy from antrum of the stomach was obtained to rule out H. pylori infection. The patient also has multiple shallow erosions. There was no evidence of any obvious esophageal mass or gastric mass at this time. At this time, the upper endoscope was retrieved and the patient was turned over for colonoscopy. First, a rectal exam was performed, which shows positive for internal hemorrhoid. Then, the scope was advanced rectum into the cecum, documented by appendicial orifice, ileocecal valve, and upper quadrant palpation. Quality of prep was very good. The patient had 3 polyps in the sigmoid colon. Two of them were removed with the cold snare polypectomy measured roughly about 5 mm. The one in the sigmoid colon, which was removed with the cold biopsy forceps technique. The patient had evidence of the sigmoid and left-sided diverticulosis without any obvious diverticulitis. Retroflexion of rectum showed evidence of medium-sized nonbleeding internal hemorrhoids. SUMMARY FINDINGS: 1. Gastric erosions. 2. Gastritis with biopsy. 3. Three colonic polyps removed, see above for details. 4. Diverticulosis. 5. Internal hemorrhoids. RECOMMENDATIONS: 1. Follow biopsy and treat accordingly. 2. We will repeat colonoscopy in three years given 3 polyps fine in this colonoscopy examination. 3. The patient needs an outpatient capsule endoscopy for workup of anemia given endoscopy and colonoscopy the patient is profoundly anemic. 4. The patient needs a CT. Then, I will order a CT of the chest, abdomen and pelvis for rule out malignancy and also order a CEA and iron panel. I want to thank, Dr. Dykes, for this kind referral. Clyde Espinosa M.D. DR: KEVIN JOB#: [id number] CC: Misha Dykes M.D.; Fax#: [phone] [facility]
--- NOTE | 2016-07-26 20:53 | Cardiology Progress Note ---
Assessment/Plan Assessment/Plan abd and chest discomfort black hard stool anemia obesity dm htn no myonecrosis desptie 48 hour of pain likely gi in origin ekg neg trop neg echo neg egd colosncopy noted abn noted he has exertional chest pain will need ischemia evaluation repeat ekg and trop tonite Subjective Cardiovascular: Reports: chest pain, lightheadedness Respiratory: Reports: shortness of breath Objective Last 24 Hour Vital Signs Date Time Temp Pulse Resp B/P Pulse Ox O2 Delivery O2 Flow Rate FiO2 07/26/16 20:00 98.1 68 20 153/67 98 Room Air 07/26/16 16:00 97.7 60 20 130/74 96 Room Air 07/26/16 16:00 66 07/26/16 13:04 72 20 98 07/26/16 12:00 61 07/26/16 11:30 97.2 61 14 120/70 97 Room Air 07/26/16 11:15 63 15 119/69 96 Room Air 07/26/16 11:00 97.2 62 16 117/65 97 Room Air 07/26/16 10:45 63 15 118/62 98 Room Air 07/26/16 10:33 64 14 116/58 100 Nasal Cannula 2.0 07/26/16 10:28 60 16 120/61 100 Nasal Cannula 2.0 07/26/16 10:25 66 20 99 07/26/16 10:23 97.0 62 15 118/68 100 Nasal Cannula 2.0 07/26/16 08:20 60 20 Room Air 21 07/26/16 08:00 60 07/26/16 07:57 97.7 60 20 106/49 96 Room Air 07/26/16 04:29 97.9 88 20 141/59 95 Room Air 07/26/16 04:00 62 07/26/16 00:28 98.0 77 20 109/58 98 Room Air 07/26/16 00:00 70 General Appearance: no apparent distress Cardiovascular: normal rate, regular rhythm Respiratory/Chest: chest wall non-tender, lungs clear, normal breath sounds Abdomen: normal bowel sounds, non tender, soft Extremities: no swelling Intake and Output 07/25/16 07/26/16 19:00 07:00 Intake Total 1000 ml 300 ml Balance 1000 ml 300 ml Intake Oral 1000 ml 300 ml # Voids 2 1 # Bowel Movements 2 Laboratory Tests Test 07/26/16 06:45 07/26/16 08:50 Sodium Level 140 mEQ/L (135-145) Potassium Level 4.2 mEQ/L (3.4-4.9) Chloride Level 100 mEQ/L (98-107) Carbon Dioxide Level 25 mEQ/L (20-30) Anion Gap 15 (5-15) Blood Urea Nitrogen 11 mg/dL (7-23) Creatinine 0.6 mg/dL (0.7-1.2) L Estimat Glomerular Filtration Rate > 60 mL/min (>60) Glucose Level 129 mg/dL (74-106) H Calcium Level 8.6 mg/dL (8.6-10.2) Total Bilirubin < 0.2 mg/dL (0.0-1.2) Aspartate Amino Transf (AST/SGOT) 29 U/L (5-40) Alanine Aminotransferase (ALT/SGPT) 33 U/L (3-41) Alkaline Phosphatase 38 U/L (40-129) L Troponin I < 0.30 ng/mL (<=0.30) Total Protein 6.5 g/dL (6.6-8.7) L Albumin 4.0 g/dL (3.5-5.2) Globulin 2.5 g/dL Albumin/Globulin Ratio 1.6 (1.0-2.7) White Blood Count 5.5 K/UL (4.8-10.8) Red Blood Count 2.75 M/UL (4.70-6.10) L Hemoglobin 8.5 G/DL (14.2-18.0) L Hematocrit 24.4 % (42.0-52.0) L Mean Corpuscular Volume 89 FL (80-99) Mean Corpuscular Hemoglobin 31.0 PG (27.0-31.0) Mean Corpuscular Hemoglobin Concent 35.0 G/DL (32.0-36.0) Red Cell Distribution Width 12.7 % (11.6-14.8) Platelet Count 287 K/UL (150-450) Mean Platelet Volume 8.0 FL (6.5-10.1) Neutrophils (%) (Auto) 54.5 % (45.0-75.0) Lymphocytes (%) (Auto) 36.0 % (20.0-45.0) Monocytes (%) (Auto) 6.7 % (1.0-10.0) Eosinophils (%) (Auto) 1.6 % (0.0-3.0) Basophils (%) (Auto) 1.2 % (0.0-2.0) Prothrombin Time 10.1 SEC (9.30-11.50) Prothromb Time International Ratio 1.0 (0.9-1.1) Activated Partial Thromboplast Time 22 SEC (23-33) BRITTNEY IYER Jul 26, 2016 20:53
[2016-07-26 21:44] LABS: TROPONIN I < 0.30 ng/mL (<=0.30)
[2016-07-26] MEDS: Tamsulosin 0.4mg cap ORAL SCH (22:08)
[2016-07-27] VITALS (7 sets, daily range): BP systolic 104–153; BP diastolic 45–74
[2016-07-27 05:36] LABS: BASOPHILS % (AUTO) 0.8 % (0.0-2.0); EOSINOPHILS % (AUTO) 1.4 % (0.0-3.0); LYMPHOCYTES % (AUTO) 39.2 % (20.0-45.0); MEAN CORPUSCULAR HEMOGLOBIN 30.7 PG (27.0-31.0); MEAN CORPUSCULAR VOLUME 90 FL (80-99); MEAN PLATELET VOLUME 7.5 FL (6.5-10.1); MONOCYTES % (AUTO) 6.2 % (1.0-10.0); NEUTROPHILS % (AUTO) 52.3 % (45.0-75.0); PLATELET COUNT 315 K/UL (150-450); RED BLOOD COUNT 2.69 M/UL (4.70-6.10); RED CELL DISTRIBUTION WIDTH 13.9 % (11.6-14.8); WHITE BLOOD COUNT 5.9 K/UL (4.8-10.8)
[2016-07-27] MEDS: Heparin 5000 units/ml inj SUBQ SCH ×3 (06:00→21:47)
[2016-07-27 06:05] LABS: TROPONIN I < 0.30 ng/mL (<=0.30)
[2016-07-27 06:43] LABS: ANION GAP 16 (5-15); CALCIUM 8.7 mg/dL (8.6-10.2); CARBON DIOXIDE 24 mEQ/L (20-30); CHLORIDE 100 mEQ/L (98-107); CREATININE 0.6 mg/dL (0.7-1.2); GLOMERULAR FILTRATION RATE > 60 mL/min (>60); HEMOLYSIS 0; POTASSIUM 4.2 mEQ/L (3.4-4.9); SODIUM 140 mEQ/L (135-145)
[2016-07-27] MEDS: NovoLOG Insulin Flexpen SUBQ SCH ×4 (06:44→21:51)
[2016-07-27] MEDS: Aspirin Baby 81mg ORAL SCH (09:00)
--- NOTE | 2016-07-27 11:33 | GI Progress Note ---
Assessment/Plan Problems: (1) GI bleed ICD Codes: K92.2 - Gastrointestinal hemorrhage, unspecified SNOMED: 29317775 (2) Anemia ICD Codes: D64.9 - Anemia, unspecified SNOMED: 600515000 Status: stable Status Narrative Discussed with Dr. Espinosa. Assessment/Plan SUMMARY FINDINGS: 1. Gastric erosions. 2. Gastritis with biopsy. 3. Three colonic polyps removed, see above for details. 4. Diverticulosis. 5. Internal hemorrhoids. APCT reviewed >> No evidence of aortic dissection or aneurysm. Mild atherosclerotic vascular disease noted. Hepatomegaly with fatty infiltration. Hiatal hernia, see full report. CEA WNL RECOMMENDATIONS: ok for DC per GI standpoint ppi iron deficient >> venofer fu biopsy repeat colon x 3 years outpatient SB capsule endoscopy for anemia evaluation Subjective Gastrointestinal/Abdominal: Reports: no symptoms Objective Last 24 Hour Vital Signs Date Time Temp Pulse Resp B/P Pulse Ox O2 Delivery O2 Flow Rate FiO2 07/27/16 08:00 97.3 59 18 108/53 100 Room Air 63 07/27/16 07:40 66 18 Room Air 21 07/27/16 06:26 106/94 07/27/16 06:20 97.9 94 20 106/57 94 07/27/16 04:00 98.2 56 20 113/50 95 Room Air 07/27/16 03:41 57 07/27/16 00:00 98.1 106 20 104/45 100 Room Air 07/26/16 23:51 66 07/26/16 20:52 72 18 Room Air 21 07/26/16 20:00 98.1 68 20 153/67 98 Room Air 07/26/16 19:30 87 07/26/16 16:00 97.7 60 20 130/74 96 Room Air 07/26/16 16:00 66 07/26/16 13:04 72 20 98 07/26/16 12:00 61 07/26/16 11:30 97.2 61 14 120/70 97 Room Air Intake and Output 07/26/16 07/27/16 19:00 07:00 Intake Total 300 ml 300 ml Output Total 360 ml Balance 300 ml -60 ml Intake Oral 300 ml IV Total 300 ml Output Urine Total 360 ml # Voids 3 2 # Bowel Movements 2 Laboratory Tests Test 07/26/16 21:20 07/27/16 05:20 Troponin I < 0.30 ng/mL (<=0.30) < 0.30 ng/mL (<=0.30) White Blood Count 5.9 K/UL (4.8-10.8) Red Blood Count 2.69 M/UL (4.70-6.10) L Hemoglobin 8.2 G/DL (14.2-18.0) L Hematocrit 24.2 % (42.0-52.0) L Mean Corpuscular Volume 90 FL (80-99) Mean Corpuscular Hemoglobin 30.7 PG (27.0-31.0) Mean Corpuscular Hemoglobin Concent 34.0 G/DL (32.0-36.0) Red Cell Distribution Width 13.9 % (11.6-14.8) Platelet Count 315 K/UL (150-450) Mean Platelet Volume 7.5 FL (6.5-10.1) Neutrophils (%) (Auto) 52.3 % (45.0-75.0) Lymphocytes (%) (Auto) 39.2 % (20.0-45.0) Monocytes (%) (Auto) 6.2 % (1.0-10.0) Eosinophils (%) (Auto) 1.4 % (0.0-3.0) Basophils (%) (Auto) 0.8 % (0.0-2.0) Sodium Level 140 mEQ/L (135-145) Potassium Level 4.2 mEQ/L (3.4-4.9) Chloride Level 100 mEQ/L (98-107) Carbon Dioxide Level 24 mEQ/L (20-30) Anion Gap 16 (5-15) H Blood Urea Nitrogen 13 mg/dL (7-23) Creatinine 0.6 mg/dL (0.7-1.2) L Estimat Glomerular Filtration Rate > 60 mL/min (>60) Glucose Level 141 mg/dL (74-106) H Calcium Level 8.7 mg/dL (8.6-10.2) Iron Level 43 ug/dL (59-158) L Total Iron Binding Capacity 368 ug/dL (250-400) Percent Iron Saturation 12 % (15-50) L Unsaturated Iron Binding 325 ug/dL (112-346) Carcinoembryonic Antigen 4.2 ng/mL H Height (Feet): 5 Height (Inches): 7.00 Weight (Pounds): 220 General Appearance: no apparent distress, alert Cardiovascular: normal rate Respiratory/Chest: normal breath sounds, no respiratory distress Abdominal Exam: normal bowel sounds, non tender, soft Extremities: normal range of motion Elenita Vinson N.P. Jul 27, 2016 11:33
[2016-07-27 13:24] LABS: TROPONIN I < 0.30 ng/mL (<=0.30)
[2016-07-27] MEDS ORDERED: Iron Sucrose 100 MG in NS 55 ML IVPB ONE (14:00)
--- NOTE | 2016-07-27 15:23 | Pulmonology Progress Note ---
Assessment/Plan Problems: (1) ACS (acute coronary syndrome) (2) Anemia (3) Diabetes mellitus (4) HTN (hypertension) Assessment/Plan stress test positive, awaiting cardiology recommendation endoscopy showing erosive gastritis and colonic polyps Venofer for iron deficiency Subjective ROS Limited/Unobtainable: No Interval Events: stress study results noted Allergies: Coded Allergies: PINEAPPLE (Verified Allergy, Unknown, 07/24/16) Objective Last 24 Hour Vital Signs Date Time Temp Pulse Resp B/P Pulse Ox O2 Delivery O2 Flow Rate FiO2 07/27/16 12:00 75 07/27/16 11:58 97.7 67 17 118/60 98 Room Air 55 07/27/16 08:00 61 07/27/16 08:00 97.3 59 18 108/53 100 Room Air 63 07/27/16 07:40 66 18 Room Air 21 07/27/16 06:26 106/94 07/27/16 06:20 97.9 94 20 106/57 94 07/27/16 04:00 98.2 56 20 113/50 95 Room Air 07/27/16 03:41 57 07/27/16 00:00 98.1 106 20 104/45 100 Room Air 07/26/16 23:51 66 07/26/16 20:52 72 18 Room Air 21 07/26/16 20:00 98.1 68 20 153/67 98 Room Air 07/26/16 19:30 87 07/26/16 16:00 97.7 60 20 130/74 96 Room Air 07/26/16 16:00 66 Intake and Output 07/26/16 07/27/16 19:00 07:00 Intake Total 300 ml 300 ml Output Total 360 ml Balance 300 ml -60 ml Intake Oral 300 ml IV Total 300 ml Output Urine Total 360 ml # Voids 3 2 # Bowel Movements 2 Objective General Appearance: WD/WN Lines, tubes and drains: peripheral, central line HEENT: normocephalic, atraumatic Neck: non-tender, normal alignment Respiratory/Chest: chest wall non-tender, lungs clear Cardiovascular/Chest: normal peripheral pulses Genitourinary/Rectal: normal genital exam Extremities: normal range of motion General Appearance: WD/WN HEENT: normocephalic, atraumatic Respiratory/Chest: chest wall non-tender, normal breath sounds Cardiovascular: normal peripheral pulses, normal rate Abdomen: normal bowel sounds, soft, non tender Skin: no rash Laboratory Tests 07/26/16 21:20: Troponin I < 0.30 07/27/16 05:20: Troponin I < 0.30, White Blood Count 5.9, Red Blood Count 2.69L, Hemoglobin 8.2L , Hematocrit 24.2L, Mean Corpuscular Volume 90, Mean Corpuscular Hemoglobin 30.7 , Mean Corpuscular Hemoglobin Concent 34.0, Red Cell Distribution Width 13.9, Platelet Count 315, Mean Platelet Volume 7.5, Neutrophils (%) (Auto) 52.3, Lymphocytes (%) (Auto) 39.2, Monocytes (%) (Auto) 6.2, Eosinophils (%) (Auto) 1.4, Basophils (%) (Auto) 0.8, Sodium Level 140, Potassium Level 4.2, Chloride Level 100, Carbon Dioxide Level 24, Anion Gap 16H, Blood Urea Nitrogen 13, Creatinine 0.6L, Estimat Glomerular Filtration Rate > 60, Glucose Level 141H, Calcium Level 8.7, Iron Level 43L, Total Iron Binding Capacity 368, Percent Iron Saturation 12L, Unsaturated Iron Binding 325, Carcinoembryonic Antigen 4.2H 07/27/16 12:55: Troponin I < 0.30 Current Medications Medications (Trade) Dose Ordered Sig/Sherine Route PRN Reason Start Time Stop Time Status Last Admin Dose Admin Acetaminophen (Tylenol) 650 mg Q4H PRN ORAL FEVER 07/24/16 21:45 08/23/16 21:44 Albuterol/ Ipratropium (DuoNeb 0.5-3(2.5)mg/3ml) 3 ml EVERY 4 HOURS PRN HHN Shortness of Breath 07/24/16 21:45 07/29/16 21:44 Aspirin (ASA) 162 mg DAILY ORAL 07/25/16 09:00 08/24/16 08:59 Atorvastatin Calcium (Lipitor) 10 mg BEDTIME ORAL 07/25/16 21:00 08/24/16 20:59 07/26/16 22:08 Dextrose (Dextrose 50%) STAT PRN IV Hypoglycemia 07/24/16 21:45 08/23/16 21:44 Diltiazem HCl (Cardizem) 10 mg EVERY HOUR PRN IV heart rate more than 120, 07/24/16 21:45 08/23/16 21:44 Enalaprilat (Vasotec) 2.5 mg EVERY 6 HOURS PRN IV sbp more than 160 07/24/16 21:45 08/23/16 21:44 Gabapentin (Neurontin) 300 mg BEDTIME ORAL 07/25/16 21:00 08/24/16 20:59 07/26/16 22:08 Heparin Sodium (Porcine) (Heparin 5000 units/ml) 5,000 units EVERY 8 HOURS SUBQ 07/24/16 22:00 08/23/16 21:59 07/27/16 06:00 Insulin Aspart (NovoLOG) BEFORE MEALS AND HS SUBQ 07/25/16 06:30 08/24/16 06:29 07/27/16 06:44 Morphine Sulfate (Morphine Sulfate) 2 mg EVERY 4 HOURS PRN IVP severe Pain (Pain Scale 7-10) 07/24/16 21:45 07/31/16 21:44 07/26/16 16:56 Nitroglycerin (Ntg) 0.4 mg Every 5 Minutes PRN SL Prn Chest Pain 07/24/16 21:45 08/23/16 21:44 07/27/16 06:26 Ondansetron HCl (Zofran) 4 mg Q6H PRN IVP Nausea & Vomiting 07/24/16 21:45 08/23/16 21:44 Pantoprazole (Protonix) 40 mg DAILY ORAL 07/25/16 09:00 08/24/16 08:59 07/27/16 09:22 Polyethylene Glycol (Miralax) 17 gm DAILYPRN PRN ORAL Constipation 07/24/16 21:45 08/23/16 21:44 Tamsulosin HCl (Flomax) 0.4 mg BEDTIME ORAL 07/25/16 21:00 08/24/16 20:59 07/26/16 22:08 Temazepam (Restoril) 15 mg HSPRN PRN ORAL Insomnia 07/24/16 21:45 07/31/16 21:44 SELENA WOLFE Jul 27, 2016 15:23
--- NOTE | 2016-07-27 16:53 | Diagnostic Imaging Report ---
Indications: Chest pain, hypertension, hypercholesterolemia Technique: Single day single isotope protocol utilized. Initially, resting images obtained using IV administration 10.8 millicuries 99M technetium Myoview. Subsequently, patient underwent treadmill stress testing. See cardiology report for details. During adenosine infusion, IV administration 31.5 mCi 99 M technetium Myoview. SPECT and planar images obtained. SPECT images gated to 8 phases of the cardiac cycle were also obtained, and reformatted into cine images for evaluation of ejection fraction. Comparison: None Findings: Per cardiology report, patient experienced fatigue. Patient achieved peak heart rate 123 beats for minute, short of the target heart rate of 133 beats for minute. Per cardiology report, resting EKG demonstrates normal sinus rhythm, T-wave abnormality. During exercise, [address] segment impression developed in leads V5 and V6. Imaging demonstrates equivocal small area of decreased perfusion at the apex on the poststress images which is not evident on the resting images. There is mild left ventricular dilatation.. Calculated post stress ejection fraction greater than 70%. No focal wall motion abnormality Impression: Ischemic clinical response to pharmacologic stress, per cardiology report Ischemic electrocardiographic response to pharmacologic stress, per cardiology report Equivocal small area of reversible apical hypoperfusion. Suspect that this is more likely soft tissue attenuation artifact than real, but true ischemia not completely excludable Calculated post stress ejection fraction greater than 70%
--- NOTE | 2016-07-27 19:37 | Cardiology Progress Note ---
Assessment/Plan Assessment/Plan unstable angina / crescendo angina black hard stool anemia obesity dm htn no myonecrosis ekg neg trop neg echo neg egd colosncopy noted abn noted no source of bleeding d/w dr alexander repeat ekg and trop all neg stress test clinically postive , ekg positive , perfusion imaging equivocal need cath at contracted cath facility i put namoe on [facility] but nto sure if contracted Subjective Cardiovascular: Reports: chest pain - exertional , Denies: lightheadedness Respiratory: Reports: shortness of breath - exertional , wheezing - on exertion Gastrointestinal/Abdominal: Reports: abdominal pain Genitourinary: Reports: burning Objective Last 24 Hour Vital Signs Date Time Temp Pulse Resp B/P Pulse Ox O2 Delivery O2 Flow Rate FiO2 07/27/16 19:28 76 18 Room Air 07/27/16 16:00 79 07/27/16 16:00 97.7 76 21 153/74 97 Room Air 07/27/16 12:00 75 07/27/16 11:58 97.7 67 17 118/60 98 Room Air 55 07/27/16 08:00 61 07/27/16 08:00 97.3 59 18 108/53 100 Room Air 63 07/27/16 07:40 66 18 Room Air 21 07/27/16 06:26 106/94 07/27/16 06:20 97.9 94 20 106/57 94 07/27/16 04:00 98.2 56 20 113/50 95 Room Air 07/27/16 03:41 57 07/27/16 00:00 98.1 106 20 104/45 100 Room Air 07/26/16 23:51 66 07/26/16 20:52 72 18 Room Air 21 07/26/16 20:00 98.1 68 20 153/67 98 Room Air General Appearance: no apparent distress, alert Neck: normal alignment, supple Cardiovascular: normal rate, regular rhythm Respiratory/Chest: chest wall non-tender, lungs clear Abdomen: normal bowel sounds, non tender, soft Extremities: no swelling Intake and Output 07/26/16 07/27/16 19:00 07:00 Intake Total 300 ml 300 ml Output Total 360 ml Balance 300 ml -60 ml Intake Oral 300 ml IV Total 300 ml Output Urine Total 360 ml # Voids 3 2 # Bowel Movements 2 Laboratory Tests Test 07/26/16 21:20 07/27/16 05:20 07/27/16 12:55 Troponin I < 0.30 ng/mL (<=0.30) < 0.30 ng/mL (<=0.30) < 0.30 ng/mL (<=0.30) White Blood Count 5.9 K/UL (4.8-10.8) Red Blood Count 2.69 M/UL (4.70-6.10) L Hemoglobin 8.2 G/DL (14.2-18.0) L Hematocrit 24.2 % (42.0-52.0) L Mean Corpuscular Volume 90 FL (80-99) Mean Corpuscular Hemoglobin 30.7 PG (27.0-31.0) Mean Corpuscular Hemoglobin Concent 34.0 G/DL (32.0-36.0) Red Cell Distribution Width 13.9 % (11.6-14.8) Platelet Count 315 K/UL (150-450) Mean Platelet Volume 7.5 FL (6.5-10.1) Neutrophils (%) (Auto) 52.3 % (45.0-75.0) Lymphocytes (%) (Auto) 39.2 % (20.0-45.0) Monocytes (%) (Auto) 6.2 % (1.0-10.0) Eosinophils (%) (Auto) 1.4 % (0.0-3.0) Basophils (%) (Auto) 0.8 % (0.0-2.0) Sodium Level 140 mEQ/L (135-145) Potassium Level 4.2 mEQ/L (3.4-4.9) Chloride Level 100 mEQ/L (98-107) Carbon Dioxide Level 24 mEQ/L (20-30) Anion Gap 16 (5-15) H Blood Urea Nitrogen 13 mg/dL (7-23) Creatinine 0.6 mg/dL (0.7-1.2) L Estimat Glomerular Filtration Rate > 60 mL/min (>60) Glucose Level 141 mg/dL (74-106) H Calcium Level 8.7 mg/dL (8.6-10.2) Iron Level 43 ug/dL (59-158) L Total Iron Binding Capacity 368 ug/dL (250-400) Percent Iron Saturation 12 % (15-50) L Unsaturated Iron Binding 325 ug/dL (112-346) Carcinoembryonic Antigen 4.2 ng/mL H BRITTNEY YANG Jul 27, 2016 19:37
[2016-07-27] MEDS: Tamsulosin 0.4mg cap ORAL SCH (21:39)
[2016-07-28] VITALS: BP 104/51
[2016-07-28 04:00] VITALS: BP 101/54
[2016-07-28] MEDS: Heparin 5000 units/ml inj SUBQ SCH ×3 (06:16→21:17)
[2016-07-28] MEDS: NovoLOG Insulin Flexpen SUBQ SCH ×4 (06:44→21:19)
[2016-07-28 07:09] LABS: EOSINOPHILS % (AUTO) 1.9 % (0.0-3.0); MEAN CORPUSCULAR HEMOGLOBIN 30.8 PG (27.0-31.0); MEAN CORPUSCULAR HGB CONC 34.3 G/DL (32.0-36.0); MEAN CORPUSCULAR VOLUME 90 FL (80-99); MEAN PLATELET VOLUME 7.6 FL (6.5-10.1); NEUTROPHILS % (AUTO) 50.1 % (45.0-75.0); PLATELET COUNT 337 K/UL (150-450); RED BLOOD COUNT 2.78 M/UL (4.70-6.10); RED CELL DISTRIBUTION WIDTH 13.5 % (11.6-14.8); WHITE BLOOD COUNT 5.9 K/UL (4.8-10.8)
[2016-07-28 07:17] LABS: ANION GAP 15 (5-15); CALCIUM 8.6 mg/dL (8.6-10.2); CARBON DIOXIDE 25 mEQ/L (20-30); CHLORIDE 101 mEQ/L (98-107); CREATININE 0.5 mg/dL (0.7-1.2); GLOMERULAR FILTRATION RATE > 60 mL/min (>60); HEMOLYSIS 0; POTASSIUM 4.1 mEQ/L (3.4-4.9); SODIUM 141 mEQ/L (135-145)
[2016-07-28 08:00] VITALS: BP 139/68
[2016-07-28] MEDS: Aspirin Baby 81mg ORAL SCH (08:55)
[2016-07-28 12:00] VITALS: BP 117/68
--- NOTE | 2016-07-28 12:17 | GI Progress Note ---
Assessment/Plan Problems: (1) GI bleed ICD Codes: K92.2 - Gastrointestinal hemorrhage, unspecified SNOMED: 84187961 (2) Anemia ICD Codes: D64.9 - Anemia, unspecified SNOMED: [id number] Status: stable Status Narrative Discussed with Dr. Espinosa. Assessment/Plan SUMMARY FINDINGS: 1. Gastric erosions. 2. Gastritis with biopsy. 3. Three colonic polyps removed, see above for details. 4. Diverticulosis. 5. Internal hemorrhoids. APCT reviewed >> No evidence of aortic dissection or aneurysm. Mild atherosclerotic vascular disease noted. Hepatomegaly with fatty infiltration. Hiatal hernia, see full report. CEA WNL RECOMMENDATIONS: ok for DC per GI standpoint ppi iron deficient >> venofer fu biopsy repeat colon x 3 years outpatient referral for SB capsule endoscopy for anemia evaluation Subjective Gastrointestinal/Abdominal: Reports: no symptoms Objective Last 24 Hour Vital Signs Date Time Temp Pulse Resp B/P Pulse Ox O2 Delivery O2 Flow Rate FiO2 07/28/16 08:00 98.1 78 18 139/68 98 Room Air 98 07/28/16 07:32 74 20 Room Air 07/28/16 04:00 62 07/28/16 04:00 98.1 65 18 101/54 94 Room Air 07/28/16 00:00 98.2 64 18 104/51 94 Room Air 07/28/16 00:00 62 07/27/16 20:00 65 07/27/16 20:00 98.1 69 21 106/69 98 Room Air 07/27/16 19:28 76 18 Room Air 07/27/16 16:00 79 07/27/16 16:00 97.7 76 21 153/74 97 Room Air Intake and Output 07/27/16 07/28/16 19:00 07:00 Intake Total 300 ml Balance 300 ml Intake Oral 300 ml # Voids 1 2 Laboratory Tests Test 07/27/16 12:55 07/28/16 06:05 Troponin I < 0.30 ng/mL (<=0.30) White Blood Count 5.9 K/UL (4.8-10.8) Red Blood Count 2.78 M/UL (4.70-6.10) L Hemoglobin 8.5 G/DL (14.2-18.0) L Hematocrit 24.9 % (42.0-52.0) L Mean Corpuscular Volume 90 FL (80-99) Mean Corpuscular Hemoglobin 30.8 PG (27.0-31.0) Mean Corpuscular Hemoglobin Concent 34.3 G/DL (32.0-36.0) Red Cell Distribution Width 13.5 % (11.6-14.8) Platelet Count 337 K/UL (150-450) Mean Platelet Volume 7.6 FL (6.5-10.1) Neutrophils (%) (Auto) 50.1 % (45.0-75.0) Lymphocytes (%) (Auto) 40.0 % (20.0-45.0) Monocytes (%) (Auto) 7.0 % (1.0-10.0) Eosinophils (%) (Auto) 1.9 % (0.0-3.0) Basophils (%) (Auto) 1.0 % (0.0-2.0) Sodium Level 141 mEQ/L (135-145) Potassium Level 4.1 mEQ/L (3.4-4.9) Chloride Level 101 mEQ/L (98-107) Carbon Dioxide Level 25 mEQ/L (20-30) Anion Gap 15 (5-15) Blood Urea Nitrogen 11 mg/dL (7-23) Creatinine 0.5 mg/dL (0.7-1.2) L Estimat Glomerular Filtration Rate > 60 mL/min (>60) Glucose Level 141 mg/dL (74-106) H Calcium Level 8.6 mg/dL (8.6-10.2) Height (Feet): 5 Height (Inches): 7.00 Weight (Pounds): 220 General Appearance: no apparent distress, alert Cardiovascular: normal rate Respiratory/Chest: normal breath sounds, no respiratory distress Abdominal Exam: normal bowel sounds, non tender, soft Extremities: normal range of motion Elenita Vinson N.P. Jul 28, 2016 12:17
[2016-07-28] MEDS ORDERED: Tubing IV Secondary IV ONE (14:19)
[2016-07-28] MEDS ORDERED: NS 275ml ONE (14:19)
--- NOTE | 2016-07-28 15:53 | General Progress Note ---
Progress Note Progress Note Pt needs a cardiac cath, stable to be transferred to higher level of care. SELENA WOLFE Jul 28, 2016 15:53
[2016-07-28] MEDS ORDERED: HEPARIN SO5000 UNIT2 SUBQ (15:55)
[2016-07-28 16:00] VITALS: BP 134/62
--- NOTE | 2016-07-28 19:17 | Cardiology Progress Note ---
Assessment/Plan Assessment/Plan crescendo angina black hard stool anemia obesity dm htn no myonecrosis ekg neg trop neg echo neg egd colosncopy noted abn noted no source of bleeding d/w dr alexander repeat ekg and trop all neg stress test clinically postive , ekg positive , perfusion imaging equivocal pt indicated today hasb een able to walks around with out any chest pain !!!!!! arrangement have been made for cath at [facility] tomorrow Subjective Cardiovascular: Denies: chest pain, lightheadedness, palpitations Respiratory: Denies: shortness of breath Gastrointestinal/Abdominal: Denies: abdominal pain Genitourinary: Denies: burning Objective Last 24 Hour Vital Signs Date Time Temp Pulse Resp B/P Pulse Ox O2 Delivery O2 Flow Rate FiO2 07/28/16 12:00 66 07/28/16 12:00 97.7 62 18 117/68 98 Room Air 65 07/28/16 08:00 83 07/28/16 08:00 98.1 78 18 139/68 98 Room Air 98 07/28/16 07:32 74 20 Room Air 07/28/16 04:00 62 07/28/16 04:00 98.1 65 18 101/54 94 Room Air 07/28/16 00:00 98.2 64 18 104/51 94 Room Air 07/28/16 00:00 62 07/27/16 20:00 65 07/27/16 20:00 98.1 69 21 106/69 98 Room Air 07/27/16 19:28 76 18 Room Air General Appearance: alert Neck: non-tender, no JVD Cardiovascular: normal rate, regular rhythm, regularly irregular Respiratory/Chest: lungs clear, normal breath sounds Abdomen: normal bowel sounds, non tender, soft Extremities: no swelling Intake and Output 07/27/16 07/28/16 19:00 07:00 Intake Total 300 ml Balance 300 ml Intake Oral 300 ml # Voids 1 2 Laboratory Tests Test 07/28/16 06:05 White Blood Count 5.9 K/UL (4.8-10.8) Red Blood Count 2.78 M/UL (4.70-6.10) L Hemoglobin 8.5 G/DL (14.2-18.0) L Hematocrit 24.9 % (42.0-52.0) L Mean Corpuscular Volume 90 FL (80-99) Mean Corpuscular Hemoglobin 30.8 PG (27.0-31.0) Mean Corpuscular Hemoglobin Concent 34.3 G/DL (32.0-36.0) Red Cell Distribution Width 13.5 % (11.6-14.8) Platelet Count 337 K/UL (150-450) Mean Platelet Volume 7.6 FL (6.5-10.1) Neutrophils (%) (Auto) 50.1 % (45.0-75.0) Lymphocytes (%) (Auto) 40.0 % (20.0-45.0) Monocytes (%) (Auto) 7.0 % (1.0-10.0) Eosinophils (%) (Auto) 1.9 % (0.0-3.0) Basophils (%) (Auto) 1.0 % (0.0-2.0) Sodium Level 141 mEQ/L (135-145) Potassium Level 4.1 mEQ/L (3.4-4.9) Chloride Level 101 mEQ/L (98-107) Carbon Dioxide Level 25 mEQ/L (20-30) Anion Gap 15 (5-15) Blood Urea Nitrogen 11 mg/dL (7-23) Creatinine 0.5 mg/dL (0.7-1.2) L Estimat Glomerular Filtration Rate > 60 mL/min (>60) Glucose Level 141 mg/dL (74-106) H Calcium Level 8.6 mg/dL (8.6-10.2) BRITTNEY YANG Jul 28, 2016 19:17
[2016-07-28 20:00] VITALS: BP 134/62
[2016-07-28] MEDS: Tamsulosin 0.4mg cap ORAL SCH (21:13)
--- NOTE | 2016-07-28 23:30 | Pulmonology Progress Note ---
Assessment/Plan Problems: (1) ACS (acute coronary syndrome) (2) Anemia (3) Diabetes mellitus (4) HTN (hypertension) Assessment/Plan stress test positive, awaiting cardiology recommendation endoscopy showing erosive gastritis and colonic polyps Venofer for iron deficiency Subjective Allergies: Coded Allergies: PINEAPPLE (Verified Allergy, Unknown, 07/24/16) Objective Last 24 Hour Vital Signs Date Time Temp Pulse Resp B/P Pulse Ox O2 Delivery O2 Flow Rate FiO2 07/28/16 22:32 97.0 07/28/16 22:06 58 07/28/16 20:00 97.0 60 20 134/62 97 Room Air 07/28/16 19:24 68 20 Room Air 07/28/16 16:49 60 07/28/16 16:00 97.0 60 20 134/62 97 Room Air 07/28/16 12:00 66 07/28/16 12:00 97.7 62 18 117/68 98 Room Air 65 07/28/16 08:00 83 07/28/16 08:00 98.1 78 18 139/68 98 Room Air 98 07/28/16 07:32 74 20 Room Air 07/28/16 04:00 62 07/28/16 04:00 98.1 65 18 101/54 94 Room Air 07/28/16 00:00 98.2 64 18 104/51 94 Room Air 07/28/16 00:00 62 Intake and Output 07/27/16 07/28/16 19:00 07:00 Intake Total 300 ml Balance 300 ml Intake Oral 300 ml # Voids 1 2 Objective General Appearance: WD/WN Lines, tubes and drains: peripheral, central line HEENT: normocephalic, atraumatic Neck: non-tender, normal alignment Respiratory/Chest: chest wall non-tender, lungs clear Cardiovascular/Chest: normal peripheral pulses Genitourinary/Rectal: normal genital exam Extremities: normal range of motion Laboratory Tests 07/28/16 06:05: White Blood Count 5.9, Red Blood Count 2.78L, Hemoglobin 8.5L, Hematocrit 24.9L , Mean Corpuscular Volume 90, Mean Corpuscular Hemoglobin 30.8, Mean Corpuscular Hemoglobin Concent 34.3, Red Cell Distribution Width 13.5, Platelet Count 337, Mean Platelet Volume 7.6, Neutrophils (%) (Auto) 50.1, Lymphocytes (% ) (Auto) 40.0, Monocytes (%) (Auto) 7.0, Eosinophils (%) (Auto) 1.9, Basophils ( %) (Auto) 1.0, Sodium Level 141, Potassium Level 4.1, Chloride Level 101, Carbon Dioxide Level 25, Anion Gap 15, Blood Urea Nitrogen 11, Creatinine 0.5L, Estimat Glomerular Filtration Rate > 60, Glucose Level 141H, Calcium Level 8.6 Current Medications Medications (Trade) Dose Ordered Sig/Sherine Route PRN Reason Start Time Stop Time Status Last Admin Dose Admin Acetaminophen (Tylenol) 650 mg Q4H PRN ORAL FEVER 07/24/16 21:45 08/23/16 21:44 Albuterol/ Ipratropium (DuoNeb 0.5-3(2.5)mg/3ml) 3 ml EVERY 4 HOURS PRN HHN Shortness of Breath 07/24/16 21:45 07/29/16 21:44 Aspirin (ASA) 162 mg DAILY ORAL 07/25/16 09:00 08/24/16 08:59 Atorvastatin Calcium (Lipitor) 10 mg BEDTIME ORAL 07/25/16 21:00 08/24/16 20:59 07/28/16 21:13 Dextrose (Dextrose 50%) STAT PRN IV Hypoglycemia 07/24/16 21:45 08/23/16 21:44 Diltiazem HCl (Cardizem) 10 mg EVERY HOUR PRN IV heart rate more than 120, 07/24/16 21:45 08/23/16 21:44 Enalaprilat (Vasotec) 2.5 mg EVERY 6 HOURS PRN IV sbp more than 160 07/24/16 21:45 08/23/16 21:44 Gabapentin (Neurontin) 300 mg BEDTIME ORAL 07/25/16 21:00 08/24/16 20:59 07/28/16 21:13 Heparin Sodium (Porcine) (Heparin 5000 units/ml) 5,000 units EVERY 8 HOURS SUBQ 07/24/16 22:00 08/23/16 21:59 07/28/16 21:17 Insulin Aspart (NovoLOG) BEFORE MEALS AND HS SUBQ 07/25/16 06:30 08/24/16 06:29 07/28/16 21:19 Morphine Sulfate (Morphine Sulfate) 2 mg EVERY 4 HOURS PRN IVP severe Pain (Pain Scale 7-10) 07/24/16 21:45 07/31/16 21:44 07/26/16 16:56 Nitroglycerin (Ntg) 0.4 mg Every 5 Minutes PRN SL Prn Chest Pain 07/24/16 21:45 08/23/16 21:44 07/27/16 06:26 Ondansetron HCl (Zofran) 4 mg Q6H PRN IVP Nausea & Vomiting 07/24/16 21:45 08/23/16 21:44 Pantoprazole (Protonix) 40 mg DAILY ORAL 07/25/16 09:00 08/24/16 08:59 07/28/16 08:54 Polyethylene Glycol (Miralax) 17 gm DAILYPRN PRN ORAL Constipation 07/24/16 21:45 08/23/16 21:44 Tamsulosin HCl (Flomax) 0.4 mg BEDTIME ORAL 07/25/16 21:00 08/24/16 20:59 07/28/16 21:13 Temazepam (Restoril) 15 mg HSPRN PRN ORAL Insomnia 07/24/16 21:45 07/31/16 21:44 SELENA WOLFE Jul 28, 2016 23:30
--- NOTE | 2016-07-31 08:48 | Cardiology Report ---
APPROVED REPORT EKG Measurement Heart [id number] NM [id number] [id number] Sinus bradycardia Possible Left atrial enlargement Septal infarct, age undetermined Abnormal ECG
--- NOTE | 2016-07-31 08:48 | Cardiology Report ---
APPROVED REPORT EKG Measurement Heart [id number] SC [id number] Normal sinus rhythm Possible Left atrial enlargement Nonspecific T wave abnormality Abnormal ECG
--- NOTE | 2016-07-31 12:39 | Discharge Summary ---
Discharge Summary Hospital Course Date of Admission Jul 24, 2016 at 13:33 Date of Discharge Jul 28, 2016 at 23:20 Admitting Diagnosis ACUTE CORONARY SYNDROME XOCHITL Hanson is a 66 year old male who was admitted on Jul 24, 2016 at 13:33 for Acute Coronary Syndrome Hospital Course dc summary #[id number] Discharge Medications New Medications: Heparin Sod (Porcine) (Heparin Sodium*) 5 000/1 Ml Vial 5000 UNITS SUBQ EVERY 8 HOURS for 10 Days, VIAL Continued Medications: Atorvastatin Calcium* (Atorvastatin Calcium*) 20 Mg Tablet 10 MG ORAL BEDTIME, TAB Gabapentin (Neurontin) 300 Mg Cap 300 MG ORAL BEDTIME, #7 CAP 0 Refills Losartan Potassium (Losartan Potassium) 25 Mg Tablet 25 MG PO BID, TAB Discharge Condition Upon Discharge: stable Discharge Disposition Patient was discharged to [facility] for cardiac catheterization Discharge Diagnoses: Discharge Instructions Discharge Instructions Special Instructions I have been assigned to complete a D/C Summary on this account. I was not involved in the patient management Candy Leblanc NP (Vanchtein) Jul 31, 2016 12:39
--- NOTE | 2016-08-01 02:48 | Discharge Summary 2 SIG ---
DATE OF ADMISSION: 07/24/2016 DATE OF DISCHARGE: 07/28/2016 REASON FOR ADMISSION: 66-year-old male presented to emergency room complaining of chest pain started last night. Pain was pressure like, left sided, nonradiating, intermittent, lasting few seconds, and then resolved. He denied fever, chills, or shortness of breath. The patient has a history of diabetes and hypertension. Troponin was negative. EKG did not show any ischemic changes. The patient's chest x-ray revealed no acute cardiopulmonary process. Aspirin and morphine provided. The patient was transferred to telemetry for further management. ADMITTING DIAGNOSES: 1. Chest pain, rule out acute coronary syndrome. 2. Diabetes. 3. Hypertension. HOSPITAL STAY: The patient was on telemetry floor. Cardiology consult was requested. Serial troponin negative. EKG revealed no ischemic changes. Echocardiogram revealed preserved ejection fraction - 55%. Right ventricular systolic pressure of 38 consistent with mild pulmonary hypertension, and moderate left ventricular hypertrophy. Venous duplex of bilateral lower extremities was negative. Stress test was clinically and on EKG findings positive, and perfusion imaging was equivocal. According to actuarial trainee, the patient needs to have cardiac catheterization. Per insurance, the patient needed to be transferred to [facility] for cardiac catheterization and further care. The patient also noted to be anemic and stool OB was positive. GI specialist was involved in care of this patient. The patient undergone EGD and colonoscopy with findings of erosive gastritis, status post biopsy; colonic polyps, status post biopsy x3; internal hemorrhoids; and diverticulosis. PPI provided. Biopsy came back with H. pylori infection. [place] was not notified. GI recommended to have a small bowel capsule endoscopy as an outpatient to help identify any source of bleeding. Blood sugar was managed with sliding scale of insulin. Blood pressure was managed with current regimen and was stable. Biopsy of the stomach reveals no intestinal metaplasia or dysplasia, and large intestine revealed tubular adenoma with no high-grade dysplasia , polyps are hyperplastic with no dysplasia. p Patient was transferred to [facility] via [facility] ambulance when transfer was secured. DISCHARGE DIAGNOSES: 1. Chest pain. 2. Crescendo angina. 3. Diabetes mellitus. 4. Hypertension . 5. Anemia. 6. Gastrointestinal bleeding. 7. Status post esophagogastroduodenoscopy and colonoscopy. 8. Erosive gastritis, status post biopsy. 9. Colonic polyps ,status post biopsy x3. 10. Helicobacter pylori infection. 11. Internal hemorrhoids. 12. Diverticulosis. 13. Mild pulmonary hypertension. 14. Obesity. 15. Abnormal stress test. DISCHARGE MEDICATIONS: See medication reconciliation list. DISCHARGE INSTRUCTIONS: The patient will be transferred to [facility] for cardiac catheterization. Upon discharge, recommended to have outpatient small bowel capsule endoscopy to better delineate the source of bleeding. Misha Dykes M.D. I have been assigned to dictate discharge summary on this account and I was not involved in the patient's management. Candy SolorzanoStaten Island University HospitalEryn N.PAga DR: HEATHER JOB#: [id number] CC: RICKIE
== END 2016-07-28 23:20 | disposition short-term general hospital (02) | DRG 311 ==
LOC: EMR 12:55 → 2E 13:33 → EDBEDREQ 13:43
DX: I20.0 Unstable angina (principal); I27.2 Other secondary pulmonary hypertension; K92.2 Gastrointestinal hemorrhage, unspecified; D64.9 Anemia, unspecified; E11.9 Type 2 diabetes mellitus without complications; I10 Essential (primary) hypertension; K63.5 Polyp of colon; K29.70 Gastritis, unspecified, without bleeding; K57.90 Diverticulosis of intestine, part unspecified, without perforation or abscess without bleeding; E66.9 Obesity, unspecified; K64.8 Other hemorrhoids
CPT/HCPCS: 36415; 71010; 71260; 74177; 78452; 80048; 80053; 80061; 82270; 82378; 82550; 82553; 82962; 83540; 83550; 83880; 84443; 84484; 85025; 85610; 85730; 86140; 93005; 93017; 93306; 93970; 94003; 94150; 94664; J1815; J2250

== ENCOUNTER 2019-01-30 08:29 | Day surgery (SDC) | payer MEDICARE, MEDICAID ==
[2019-01-30] VITALS (9 sets, daily range): BP systolic 107–133; BP diastolic 54–65
[~2019-01-30] VITALS: Ht 160 cm; Wt 104.3 kg
[~2019-01-30 08:29] MED LIST changes: +GLIPIZIDE10 MG PO; +HEPARIN SO5000 UNIT2 SUBQ; +LOSARTAN POTASS25 M1 PO
[2019-01-30] MEDS ORDERED: LR 1000ml 1,000 ML IVLG SCH ×2 (10:00→11:02)
[2019-01-30] MEDS ORDERED: Lidocaine 1% MPF 10mg/ml 5ml ONE (10:30)
[2019-01-30] MEDS ORDERED: LR 1000ml ONE (10:30)
[2019-01-30] MEDS ORDERED: Propofol 200mg/20ml IV ONE (10:30)
--- NOTE | 2019-01-30 11:07 | Short Stay Surgery H&P ---
History of Present Illness History of Present Illness Chief Complaint Patient here for colonoscopy. Now he states he does not want to have an endoscopy. See H&P for details. HPI William Hanson is a 69 year old male who was admitted on for Anemia Patient History Allergies: Coded Allergies: PINEAPPLE (Verified Allergy, Severe, SWELLING, 01/30/19) Medication History Scheduled Atorvastatin Calcium* (Atorvastatin Calcium*), 10 MG ORAL BEDTIME, (Reported) Gemfibrozil (Gemfibrozil*), 600 MG ORAL BID, (Reported) Glipizide (Glipizide), 10 MG PO BID, (Reported) Losartan Potassium (Losartan Potassium), 25 MG PO BID, (Reported) Metformin Hcl* (Glucophage*), 1,000 MG ORAL TWICE A DAY, (Reported) Naproxen* (Naproxen*), 500 MG ORAL TWICE A DAY, (Reported) Tamsulosin Hcl (Tamsulosin Hcl*), 0.4 MG ORAL BEDTIME, (Reported) Discontinued Medications Gabapentin (Neurontin), 300 MG ORAL BEDTIME, (Reported) Discontinued Reason: Pt stopped taking med Heparin Sod (Porcine) (Heparin Sodium*), 5,000 UNITS SUBQ EVERY 8 HOURS Discontinued Reason: Pt stopped taking med Physical Exam Vital Signs Last Vital Signs Date Time Temp Pulse Resp B/P (MAP) Pulse Ox O2 Delivery O2 Flow Rate FiO2 01/30/19 09:17 Room Air 01/30/19 09:08 97.3 63 18 133/65 98 Plan Attestation Are the patient's medical conditions optimized for surgery? Yared Aguilar MD Jan 30, 2019 11:07
--- NOTE | 2019-01-30 11:07 | Anethesia Preoperative Eval ---
Anesthesia Pre-op PMH/ROS General Date of Evaluation: Jan 30, 2019 Time of Evaluation: 10:30 Anesthesiologist: khalif ASA Score: ASA 3 Mallampati Score Class I : Soft palate, uvula, fauces, pillars visible Class II: Soft palate, uvula, fauces visible Class III: Soft palate, base of uvula visible Class IV: Only hard plate visible Mallampati Classification: Class II Surgeon: Lauren Diagnosis: anemia Surgical Procedure: colonoscopy Anesthesia History: none Social History: smoking - former Family History: no anesthesia problems Allergies: Coded Allergies: PINEAPPLE (Verified Allergy, Severe, SWELLING, 01/30/19) Medications: see eMAR Patient NPO?: Yes Past Medical History Cardiovascular: Reports: HTN, other - open heart surgery, hypercholesterolemia Gastrointestinal/Genitourinary: Reports: other - bph Endocrine: Reports: DM Other: obesity PSxH Narrative: open heart heart surgery, Anesthesia Pre-op Phys. Exam Physician Exam Last Vital Signs Date Time Temp Pulse Resp B/P (MAP) Pulse Ox O2 Delivery O2 Flow Rate FiO2 01/30/19 09:17 Room Air 01/30/19 09:08 97.3 63 18 133/65 98 Constitutional: NAD Neurologic: CN 2-12 intact Cardiovascular: RRR Respiratory: CTA Gastrointestinal: S/NT/ND Airway Exam Mallampati Score: Class II MO: limited Neck: short TMD: 2fb ROM: limited Anesthesia Pre-op A/P Studies Pre-op Studies: EKG - nsr, lad Risk Assessment & Plan Assessment: asa3 Plan: mac Status Change Before Surgery: No Pre-Antibiotics Drug: Smiley Bruce MD Jan 30, 2019 11:07
--- NOTE | 2019-01-30 11:07 | Pre-Procedure Note/Attestation ---
Pre-Procedure Note/Attestation Complete Prior to Procedure Planned Procedure: not applicable Procedure Narrative: colonoscopy Indications for Procedure Pre-Operative Diagnosis: hematochezia Attestation I attest that I discussed the nature of the procedure; its benefits; risks and complications; and alternatives (and the risks and benefits of such alternatives ), prior to the procedure, with the patient (or the patient's legal sales representative womens health). I attest that, if there was a reasonable possibility of needing a blood transfusion, the patient (or the patient's legal sales representative womens health) was given the [facility] standardized written summary, pursuant to the [place] [place] Blood Safety Act ([place] Health and Safety Code # 1645, as amended). I attest that I re-evaluated the patient just prior to the surgery and that there has been no change in the patient's H&P, except as documented below: Yared Aguilar MD Jan 30, 2019 11:07
[2019-01-30] MEDS ORDERED: fentaNYL 100 mcg/2 mL IV PRN (11:15)
[2019-01-30] MEDS ORDERED: Atropine Inj 1mg/10ml Syr IV PRN (11:15)
[2019-01-30] MEDS ORDERED: DiphenhydrAMINE 50mg/ml Inj IVP PRN (11:15)
[2019-01-30] MEDS ORDERED: Midazolam 2mg/2ml Inj IVP PRN (11:15)
--- NOTE | 2019-01-30 12:03 | Immediate Post-Op Evaluation ---
Immediate Post-Op Evalulation Immediate Post-Op Evalulation Procedure: colonoscopy w/ bx Date of Evaluation: Jan 30, 2019 Time of Evaluation: 11:55 IV Fluids: 400ml lr Blood Products: none Estimated Blood Loss: negligible Blood Pressure Systolic: 110 Blood Pressure Diastolic: 61 Pulse Rate: 56 Respiratory Rate: 18 O2 Sat by Pulse Oximetry: 100 Temperature (Fahrenheit): 97.3 Pain Score (1-10): 0 Nausea: No Vomiting: No Complications none Patient Status: awake, reacts, patent Hydration Status: adequate Drug: Smiley Bruce MD Jan 30, 2019 12:03
--- NOTE | 2019-01-30 12:04 | 48 Hour Post Anesthesia Eval ---
Post Anesthesia Evaluation Procedure: colonoscopy w/ bx Date of Evaluation: Jan 30, 2019 Time of Evaluation: 11:57 Blood Pressure Systolic: 112 0: 66 Pulse Rate: 61 Respiratory Rate: 18 Temperature (Fahrenheit): 97.3 O2 Sat by Pulse Oximetry: 100 Airway: patent Nausea: No Vomiting: No Pain Intensity: 0 Hydration Status: adequate Cardiopulmonary Status: stable Mental Status/LOC: patient returned to baseline Post-Anesthesia Complications: none Follow-up care needed: N/A Smiley Graham MD Jan 30, 2019 12:04
--- NOTE | 2019-01-30 22:08 | Endoscopy Procedure Note ---
Endoscopy Procedure Note General Indication for Procedure: BRBPR Procedures Performed: colonoscopy Operative Findings/Diagnosis: ascend polyp, sig tics, rhoid Specimen: yes Pt Tolerated Procedure Well: Yes Estimated Blood Loss: none Anesthesia Anesthesiologist: Present Anesthesia: MAC Medications Medication Given: see anesthesia record Inserted Devices Implant(s) used?: No GI Core Measures 50 yrs or older w/o bx or poly: No 10yrs. F/U recommended: No If not recommended, why?: Above average risk 18 years or older w/prev. colo: Yes <3yrs. since last colonoscopy: No Med reason:<3 yrs.: System Reason:<3 yrs.: Last colonoscopy >= to 3yrs: Yes Yared Aguilar MD Jan 30, 2019 22:08
--- NOTE | 2019-01-30 22:10 | Brief Operative Note ---
Immediate Post Operative Note Operative Note Chief Complaint: BRBPR Pre-op Diagnosis: hematochezia Procedure: colon, bx Post-op Diagnosis: polyp, tics, rhoid Surgeon: princess Anesthesiologist: see notes Anesthesia: MAC Specimen: yes Complications: none Condition: stable Fluids: recorded Estimated Blood Loss: none Drains: none Implant(s) used?: No Yared Aguilar MD Jan 30, 2019 22:10
--- NOTE | 2019-01-30 22:45 | Procedure Note ---
DATE OF PROCEDURE: 01/30/2019 GASTROENTEROLOGY PROCEDURE REPORT PROCEDURE: Colonoscopy with biopsy. SURGEON: Yared Aguilar M.D. ANESTHESIA: Please see the separate anesthesiologist notes for details. PRE-ENDOSCOPIC DIAGNOSIS: Hematochezia. POST-ENDOSCOPIC DIAGNOSES: 1. Diminutive ascending colon polyp, status post biopsy removal. 2. [id number] sigmoid diverticulosis. 3. Mild internal hemorrhoids. DESCRIPTION OF PROCEDURE: The procedure, its risks, indications, alternatives, and possible complications were explained to the patient and informed consent was obtained. The patient was then sedated in the left lateral decubitus position and a rectal exam was done. The colonoscope was introduced in the rectum and advanced to cecum. Examination of the colonic mucosa as listed above. The colonoscope was removed. The patient was sent to recovery in good condition. COMPLICATIONS: None. RECOMMENDATIONS: 1. Follow up biopsy results. 2. High-fiber diet. 3. Outpatient followup. Yared Aguilar M.D. DR: ASHTYN JOB#: [id number] CC:
== END 2019-01-30 13:00 | disposition home or self-care (01) ==
LOC: GAS 08:29
DX: K92.1 Melena (principal); K63.5 Polyp of colon; D12.2 Benign neoplasm of ascending colon; K57.90 Diverticulosis of intestine, part unspecified, without perforation or abscess without bleeding; K64.8 Other hemorrhoids; Z79.899 Other long term (current) drug therapy; Z91.018 Allergy to other foods; D64.9 Anemia, unspecified; Z79.84 Long term (current) use of oral hypoglycemic drugs; Z95.1 Presence of aortocoronary bypass graft; I11.9 Hypertensive heart disease without heart failure; E11.9 Type 2 diabetes mellitus without complications; E78.00 Pure hypercholesterolemia, unspecified; Z87.891 Personal history of nicotine dependence; I10 Essential (primary) hypertension; E66.9 Obesity, unspecified; Z68.41 Body mass index [BMI] 40.0-44.9, adult
CPT/HCPCS: 45380; 82962; J2704; 94003; 94150